=== PATIENT | female | born 1980 | race Caucasian/White ===

== ENCOUNTER 2017-06-02 12:34 | Emergency (ER) | payer OTHER ==
[2017-06-02 15:08] LABS: ADD MAN DIFF? NO
[2017-06-02] MEDS: CEFTRIAXONE 1 GM/50 ML (PMX) 50 ML IVPB (15:09)
[2017-06-02] MEDS: SOD CHLORIDE 0.9% 500 ML IV (15:09)
[2017-06-02] MEDS: METHYLPREDNISOLONE 125 MG INJ IV (15:09)
[2017-06-02 15:12] LABS: BASOPHILS % 0.3 % (0.0-2.0); EOSINOPHILS # 0.1 10^3/ul (0.0-0.5); EOSINOPHILS % 1.3 % (0.0-7.0); HEMATOCRIT 43.8 % (37.0-47.0); HEMOGLOBIN 14.6 g/dl (12.0-16.0); LYMPHOCYTES # 2.6 10^3/ul (0.8-2.9); LYMPHOCYTES % 24.6 % (15.0-51.0); MEAN CORPUSCULAR HEMOGLOBIN 32.2 pg (29.0-33.0); MEAN CORPUSCULAR HGB CONC 33.3 g/dl (32.0-37.0); MEAN CORPUSCULAR VOLUME 96.7 fl (82.0-101.0); MEAN PLATELET VOLUME 9.7 fl (7.4-10.4); MONOCYTE # 0.6 10^3/ul (0.3-0.9); MONOCYTES % 5.4 % (0.0-11.0); NEUTROPHIL # 7.3 10^3/ul (1.6-7.5); NEUTROPHILS % 68.1 % (39.0-77.0); PLATELET COUNT 312 10^3/UL (140-415); RED BLOOD COUNT 4.53 10^6/ul (4.20-5.40); RED CELL DISTRIBUTION WIDTH 14.8 % (11.5-14.5)
[2017-06-02 15:12] LABS: WHITE BLOOD COUNT 10.6 10^3/ul (4.8-10.8)
[2017-06-02 15:32] LABS: ALANINE AMINOTRANSFERASE 99 IU/L (13-69); ALBUMIN 3.3 g/dl (3.3-4.9); ALBUMIN/GLOBULIN RATIO 0.94; ALKALINE PHOSPHATASE 111 IU/L (42-121); ANION GAP 15 (8-16); ASPARTATE AMINO TRANSFERASE 80 IU/L (15-46); BILIRUBIN,INDIRECT 0.6 mg/dl (0-1.1); BILIRUBIN,TOTAL 0.6 mg/dl (0.2-1.3); BLOOD UREA NITROGEN 16 mg/dl (7-20); CALCIUM 8.9 mg/dl (8.4-10.2); CARBON DIOXIDE 25 mmol/L (21-31); CHLORIDE 107 mmol/L (97-110); CREATININE 1.05 mg/dl (0.44-1.00); GLUCOSE 87 mg/dl (70-220); POTASSIUM 4.5 mmol/L (3.5-5.1); SODIUM 142 mmol/L (135-144); TOTAL PROTEIN 6.8 g/dl (6.1-8.1)
[2017-06-02 15:51] LABS: ADD UMIC YES; UR ASCORBIC ACID NEGATIVE (NEGATIVE); UR BILIRUBIN (Dip) NEGATIVE (NEGATIVE); UR BLOOD (Dip) 1+ mg/dL (NEGATIVE); UR CLARITY CLOUDY (CLEAR); UR COLOR YELLOW (YELLOW); UR GLUCOSE (Dip) NEGATIVE (NEGATIVE); UR KETONES (Dip) NEGATIVE (NEGATIVE); UR LEUKOCYTE ESTERASE (Dip) 3+ Leu/ul (NEGATIVE); UR NITRITE (Dip) NEGATIVE (NEGATIVE); UR RBC 14 /HPF (0-5); UR SQUAMOUS EPITHELIAL CELL FEW /HPF (FEW); UR TOTAL PROTEIN (Dip) 2+ mg/dl (NEGATIVE); UR UROBILINOGEN (Dip) NEGATIVE (NEGATIVE); UR WBC 51 /HPF (0-5)
[2017-06-02] MEDS ORDERED: FUROSEMIDE 20 MG INJ IV (16:30)
[2017-06-02] MEDS: FUROSEMIDE 20 MG TAB PO (17:11)
== END 2017-06-02 17:19 | disposition home or self-care (01) ==
LOC: FTE 12:34
DX: L03.311 Cellulitis of abdominal wall (principal); N39.0 Urinary tract infection, site not specified; Z87.891 Personal history of nicotine dependence
CPT/HCPCS: 36415; 80053; 81001; 84703; 85025; 96374; 96375; 99284-25

== ENCOUNTER 2017-06-10 15:13 | Emergency (ER) | payer OTHER ==
[2017-06-10] MEDS: morphine 4 MG/ML VIAL IV (17:53)
[2017-06-10] MEDS: ONDANSETRON 4 MG INJ IV (17:53)
[2017-06-10 18:04] LABS: ADD MAN DIFF? NO
[2017-06-10 18:10] LABS: WHITE BLOOD COUNT 10.6 10^3/ul (4.8-10.8)
[2017-06-10 18:10] LABS: BASOPHILS % 0.4 % (0.0-2.0); EOSINOPHILS # 0.3 10^3/ul (0.0-0.5); EOSINOPHILS % 2.6 % (0.0-7.0); HEMATOCRIT 44.4 % (37.0-47.0); HEMOGLOBIN 14.8 g/dl (12.0-16.0); LYMPHOCYTES # 3.2 10^3/ul (0.8-2.9); LYMPHOCYTES % 30.2 % (15.0-51.0); MEAN CORPUSCULAR HGB CONC 33.3 g/dl (32.0-37.0); MEAN CORPUSCULAR VOLUME 96.1 fl (82.0-101.0); MEAN PLATELET VOLUME 11.1 fl (7.4-10.4); MONOCYTE # 0.7 10^3/ul (0.3-0.9); MONOCYTES % 6.4 % (0.0-11.0); NEUTROPHIL # 6.4 10^3/ul (1.6-7.5); PLATELET COUNT 297 10^3/UL (140-415); RED BLOOD COUNT 4.62 10^6/ul (4.20-5.40)
[2017-06-10 18:31] LABS: ALANINE AMINOTRANSFERASE 117 IU/L (13-69); ALBUMIN 3.4 g/dl (3.3-4.9); ALKALINE PHOSPHATASE 99 IU/L (42-121); ANION GAP 12 (8-16); ASPARTATE AMINO TRANSFERASE 102 IU/L (15-46); BILIRUBIN,INDIRECT 0.9 mg/dl (0-1.1); BILIRUBIN,TOTAL 0.9 mg/dl (0.2-1.3); BLOOD UREA NITROGEN 23 mg/dl (7-20); CARBON DIOXIDE 28 mmol/L (21-31); CHLORIDE 106 mmol/L (97-110); CREATININE 1.25 mg/dl (0.44-1.00); GLUCOSE 77 mg/dl (70-220); LIPASE 270 U/L (23-300); SODIUM 141 mmol/L (135-144); TOTAL PROTEIN 6.8 g/dl (6.1-8.1)
[2017-06-10 19:51] LABS: TROPONIN-I < 0.012 ng/ml (0.00-0.12)
[2017-06-10 20:20] LABS: ADD UMIC YES; UR ASCORBIC ACID NEGATIVE (NEGATIVE); UR BACTERIA FEW /HPF (NONE SEEN); UR BILIRUBIN (Dip) NEGATIVE (NEGATIVE); UR BLOOD (Dip) 2+ mg/dL (NEGATIVE); UR CLARITY CLOUDY (CLEAR); UR COLOR YELLOW (YELLOW); UR GLUCOSE (Dip) NEGATIVE (NEGATIVE); UR KETONES (Dip) NEGATIVE (NEGATIVE); UR LEUKOCYTE ESTERASE (Dip) 3+ Leu/ul (NEGATIVE); UR NITRITE (Dip) NEGATIVE (NEGATIVE); UR RBC 17 /HPF (0-5); UR SPECIFIC GRAVITY (Dip) 1.011 (1.003-1.030); UR SQUAMOUS EPITHELIAL CELL MODERATE /HPF (FEW); UR TOTAL PROTEIN (Dip) NEGATIVE (NEGATIVE); UR UROBILINOGEN (Dip) NEGATIVE (NEGATIVE); UR WBC 45 /HPF (0-5)
== END 2017-06-11 06:53 | disposition home or self-care (01) ==
LOC: FTE 15:13 → E/R 06-11 06:53
DX: I48.92 Unspecified atrial flutter (principal); F17.210 Nicotine dependence, cigarettes, uncomplicated
CPT/HCPCS: 36415; 71045; 74176; 80053; 81001; 81025; 83690; 84484; 85025; 85378; 93005; 93970; 96374; 96375; 99285-25

== ENCOUNTER 2017-06-25 13:33 | Inpatient (IN) | payer OTHER ==
[2017-06-25 16:22] LABS: ADD UMIC YES; UR ASCORBIC ACID NEGATIVE (NEGATIVE); UR BACTERIA FEW /HPF (NONE SEEN); UR BILIRUBIN (Dip) NEGATIVE (NEGATIVE); UR BLOOD (Dip) 3+ mg/dL (NEGATIVE); UR CLARITY SLIGHTLY CLOUDY (CLEAR); UR COLOR YELLOW (YELLOW); UR GLUCOSE (Dip) NEGATIVE (NEGATIVE); UR KETONES (Dip) NEGATIVE (NEGATIVE); UR LEUKOCYTE ESTERASE (Dip) 3+ Leu/ul (NEGATIVE); UR NITRITE (Dip) NEGATIVE (NEGATIVE); UR RBC 7 /HPF (0-5); UR SPECIFIC GRAVITY (Dip) 1.011 (1.003-1.030); UR SQUAMOUS EPITHELIAL CELL FEW /HPF (FEW); UR TOTAL PROTEIN (Dip) 2+ mg/dl (NEGATIVE); UR UROBILINOGEN (Dip) 2+ mg/dL (NEGATIVE); UR WBC 42 /HPF (0-5)
[2017-06-25] MEDS: FUROSEMIDE 20 MG TAB PO (16:22)
[2017-06-25 16:42] LABS: BARBITURATES Negative (NEGATIVE); BENZODIAZEPINES Negative (NEGATIVE)
[2017-06-25 16:58] LABS: CANNABINOIDS Negative (NEGATIVE)
[2017-06-25 16:59] LABS: HAAIG REFLEX REFLEX FILED
[2017-06-25 17:00] LABS: COCAINE Negative (NEGATIVE)
[2017-06-25 17:20] LABS: AMPHETAMINE/METHAMPHETAMINE POSITIVE (NEGATIVE)
[2017-06-25 17:24] LABS: ADD MAN DIFF? NO
[2017-06-25 17:25] LABS: BASOPHILS % 0.5 % (0.0-2.0); EOSINOPHILS # 0.2 10^3/ul (0.0-0.5); EOSINOPHILS % 2.7 % (0.0-7.0); HEMATOCRIT 43.8 % (37.0-47.0); HEMOGLOBIN 14.6 g/dl (12.0-16.0); LYMPHOCYTES # 3.4 10^3/ul (0.8-2.9); LYMPHOCYTES % 41.4 % (15.0-51.0); MEAN CORPUSCULAR HEMOGLOBIN 32.5 pg (29.0-33.0); MEAN CORPUSCULAR HGB CONC 33.3 g/dl (32.0-37.0); MEAN CORPUSCULAR VOLUME 97.6 fl (82.0-101.0); MEAN PLATELET VOLUME 11.2 fl (7.4-10.4); MONOCYTE # 0.5 10^3/ul (0.3-0.9); MONOCYTES % 6.3 % (0.0-11.0); NEUTROPHILS % 48.9 % (39.0-77.0); PLATELET COUNT 295 10^3/UL (140-415); RED BLOOD COUNT 4.49 10^6/ul (4.20-5.40); RED CELL DISTRIBUTION WIDTH 15.5 % (11.5-14.5)
[2017-06-25 17:25] LABS: WHITE BLOOD COUNT 8.3 10^3/ul (4.8-10.8)
[2017-06-25] MEDS ORDERED: ACETAMINOPHEN 325 MG TAB PO ×2 (17:30→18:30)
[2017-06-25] MEDS ORDERED: ONDANSETRON 4 MG INJ IV ×2 (17:30→18:30)
[2017-06-25 17:44] LABS: OPIATES Negative (NEGATIVE)
[2017-06-25 18:15] LABS: HIV 1&2 ANTIBODY NEGATIVE (NEGATIVE)
[2017-06-25 18:19] LABS: ALANINE AMINOTRANSFERASE 67 IU/L (13-69); ANION GAP 9 (8-16); ASPARTATE AMINO TRANSFERASE 59 IU/L (15-46); BLOOD UREA NITROGEN 11 mg/dl (7-20); CALCIUM 8.9 mg/dl (8.4-10.2); CARBON DIOXIDE 30 mmol/L (21-31); CHLORIDE 109 mmol/L (97-110); CREATININE 1.08 mg/dl (0.44-1.00); GLUCOSE 76 mg/dl (70-220); POTASSIUM 4.3 mmol/L (3.5-5.1); SODIUM 144 mmol/L (135-144)
[2017-06-25 18:20] LABS: ALBUMIN 3.1 g/dl (3.3-4.9); ALBUMIN/GLOBULIN RATIO 1.03; ALKALINE PHOSPHATASE 87 IU/L (42-121); BILIRUBIN,INDIRECT 0.4 mg/dl (0-1.1); BILIRUBIN,TOTAL 0.4 mg/dl (0.2-1.3); TOTAL PROTEIN 6.1 g/dl (6.1-8.1)
[2017-06-25 18:25] LABS: TROPONIN-I < 0.012 ng/ml (0.00-0.12)
[2017-06-25 18:29] LABS: B-TYPE NATRIURETIC PEPTIDE 4110 PG/ML (0-125)
[2017-06-25] MEDS ORDERED: NACL 0.9% 3 ML SYG IV (18:30)
[2017-06-25] MEDS ORDERED: BISACODYL (EC) 5 MG TAB PO (18:30)
[2017-06-25] MEDS ORDERED: DOCUSATE SODIUM 100 MG CAP PO (18:30)
[2017-06-25] MEDS ORDERED: MAGNESIUM HYDROXIDE 30ML CUP PO (18:30)
[2017-06-25 18:49] LABS: THYROID STIMULATING HORMONE 0.729 MIU/L (0.465-4.680)
[2017-06-25 18:51] LABS: HEPATITIS B SURFACE ANTIGEN NEGATIVE (NEGATIVE)
[2017-06-25 20:39] LABS: HEPATITIS B CORE ANTIBODY NEGATIVE (NEGATIVE); HEPATITIS C VIRAL ANTIBODY NEGATIVE (NEGATIVE)
[2017-06-25 22:11] LABS: CREATINE KINASE 101 IU/L (23-200)
[2017-06-25 22:24] LABS: CK INDEX 1.8; CK-MB 1.86 ng/ml (0.0-2.4)
[2017-06-25 22:25] LABS: TROPONIN-I < 0.012 ng/ml (0.00-0.12)
[2017-06-25] MEDS: METOPROLOL 25 MG TAB PO (22:39)
[2017-06-25 22:42] LABS: SODIUM,URINE RANDOM 84 mmol/L (30-90)
[2017-06-25 22:42] LABS: POTASSIUM,URINE RANDOM 24.1 mmol/L (25-125)
[2017-06-25 22:45] LABS: CREATININE,URINE RANDOM 94.64 mg/dl (20-320)
[2017-06-26 01:01] LABS: CREATINE KINASE 101 IU/L (23-200)
[2017-06-26 01:10] LABS: CK INDEX 1.7; CK-MB 1.76 ng/ml (0.0-2.4)
[2017-06-26 01:32] LABS: TROPONIN-I < 0.012 ng/ml (0.00-0.12)
[2017-06-26] MEDS: FUROSEMIDE 20 MG INJ IV ×2 (05:11→17:45)
[2017-06-26] MEDS: PANTOPRAZOLE 40 MG INJ IV (05:11)
[2017-06-26 06:07] LABS: ADD MAN DIFF? NO
[2017-06-26 06:18] LABS: BASOPHILS % 0.5 % (0.0-2.0); EOSINOPHILS # 0.2 10^3/ul (0.0-0.5); EOSINOPHILS % 3.1 % (0.0-7.0); HEMATOCRIT 41.9 % (37.0-47.0); HEMOGLOBIN 13.9 g/dl (12.0-16.0); LYMPHOCYTES # 3.4 10^3/ul (0.8-2.9); LYMPHOCYTES % 44.3 % (15.0-51.0); MEAN CORPUSCULAR HEMOGLOBIN 32.3 pg (29.0-33.0); MEAN CORPUSCULAR HGB CONC 33.2 g/dl (32.0-37.0); MEAN CORPUSCULAR VOLUME 97.2 fl (82.0-101.0); MEAN PLATELET VOLUME 10.4 fl (7.4-10.4); MONOCYTE # 0.5 10^3/ul (0.3-0.9); MONOCYTES % 6.6 % (0.0-11.0); NEUTROPHIL # 3.5 10^3/ul (1.6-7.5); NEUTROPHILS % 45.2 % (39.0-77.0); PLATELET COUNT 271 10^3/UL (140-415); RED BLOOD COUNT 4.31 10^6/ul (4.20-5.40); RED CELL DISTRIBUTION WIDTH 14.6 % (11.5-14.5)
[2017-06-26 06:18] LABS: WHITE BLOOD COUNT 7.7 10^3/ul (4.8-10.8)
[2017-06-26 06:35] LABS: ALANINE AMINOTRANSFERASE 64 IU/L (13-69); ALBUMIN 2.6 g/dl (3.3-4.9); ALBUMIN/GLOBULIN RATIO 0.92; ALKALINE PHOSPHATASE 70 IU/L (42-121); ANION GAP 11 (8-16); ASPARTATE AMINO TRANSFERASE 54 IU/L (15-46); BILIRUBIN,INDIRECT 0.3 mg/dl (0-1.1); BILIRUBIN,TOTAL 0.3 mg/dl (0.2-1.3); BLOOD UREA NITROGEN 13 mg/dl (7-20); CALCIUM 8.8 mg/dl (8.4-10.2); CARBON DIOXIDE 24 mmol/L (21-31); CHLORIDE 111 mmol/L (97-110); CREATININE 1.23 mg/dl (0.44-1.00); GLUCOSE 100 mg/dl (70-220); POTASSIUM 3.9 mmol/L (3.5-5.1); SODIUM 142 mmol/L (135-144); TOTAL PROTEIN 5.4 g/dl (6.1-8.1)
[2017-06-26 08:03] LABS: COMPLEMENT C3 102 mg/dl (88-165); COMPLEMENT C4 28 mg/dl (14-44)
[2017-06-26] MEDS: METOPROLOL 25 MG TAB PO (08:38)
[2017-06-26] MEDS: ENOXAPARIN 40 MG/0.4 ML SYG SC (08:39)
[2017-06-26 08:44] LABS: HEPATITIS C VIRAL ANTIBODY NEGATIVE (NEGATIVE)
[2017-06-26 08:45] LABS: HIV 1&2 ANTIBODY NEGATIVE (NEGATIVE)
[2017-06-26] MEDS ORDERED: ENOXAPARIN 40 MG/0.4 ML SYG SC (09:00)
[2017-06-26 09:25] LABS: CHOL/HDL RATIO 3.3 RATIO; HDL CHOLESTEROL 38 mg/dl (34-82); LDL CHOLESTEROL,CALCULATED 67 mg/dl; TRIGLYCERIDES 113 mg/dl (0-149)
[2017-06-26 09:25] LABS: CHOLESTEROL 128 mg/dl (100-200)
[2017-06-26 09:28] LABS: HEMOGLOBIN A1C 5.1 % (0-5.9)
[2017-06-26 09:42] LABS: FREE T4 (FREE THYROXINE) 1.87 ng/dl (0.79-2.35)
[2017-06-26 10:44] LABS: ADD UMIC YES; UR ASCORBIC ACID NEGATIVE (NEGATIVE); UR BILIRUBIN (Dip) NEGATIVE (NEGATIVE); UR BLOOD (Dip) 3+ mg/dL (NEGATIVE); UR CLARITY CLEAR (CLEAR); UR COLOR STRAW (YELLOW); UR GLUCOSE (Dip) NEGATIVE (NEGATIVE); UR KETONES (Dip) NEGATIVE (NEGATIVE); UR LEUKOCYTE ESTERASE (Dip) TRACE Leu/ul (NEGATIVE); UR NITRITE (Dip) NEGATIVE (NEGATIVE); UR RBC 84 /HPF (0-5); UR SPECIFIC GRAVITY (Dip) 1.004 (1.003-1.030); UR SQUAMOUS EPITHELIAL CELL FEW /HPF (FEW); UR TOTAL PROTEIN (Dip) NEGATIVE (NEGATIVE); UR UROBILINOGEN (Dip) NEGATIVE (NEGATIVE); UR WBC 3 /HPF (0-5)
[2017-06-26 11:03] LABS: SODIUM,URINE RANDOM 107 mmol/L (30-90)
[2017-06-26 11:03] LABS: CREATININE,URINE RANDOM 18.46 mg/dl (20-320)
[2017-06-26] MEDS: HEPARIN 5,000 UNIT/0.5 ML VIAL SC ×2 (13:29→21:09)
[2017-06-26] MEDS: HYDROCODONE/APAP (5/325) TAB PO (13:46)
[2017-06-26 21:46] LABS: RAPID PLASMA REAGIN NONREACTIVE (NR)
[2017-06-27 02:37] LABS: COLLECTION PERIOD 24 hrs
[2017-06-27 03:05] LABS: VOLUME 3900 mls
[2017-06-27 05:30] LABS: WHITE BLOOD COUNT 9.5 10^3/ul (4.8-10.8)
[2017-06-27 05:30] LABS: BASOPHILS % 0.4 % (0.0-2.0); EOSINOPHILS # 0.3 10^3/ul (0.0-0.5); EOSINOPHILS % 2.7 % (0.0-7.0); HEMATOCRIT 42.6 % (37.0-47.0); HEMOGLOBIN 14.2 g/dl (12.0-16.0); LYMPHOCYTES # 3.7 10^3/ul (0.8-2.9); LYMPHOCYTES % 38.5 % (15.0-51.0); MEAN CORPUSCULAR HEMOGLOBIN 32.2 pg (29.0-33.0); MEAN CORPUSCULAR HGB CONC 33.3 g/dl (32.0-37.0); MEAN CORPUSCULAR VOLUME 96.6 fl (82.0-101.0); MEAN PLATELET VOLUME 10.3 fl (7.4-10.4); MONOCYTE # 0.8 10^3/ul (0.3-0.9); MONOCYTES % 8.2 % (0.0-11.0); NEUTROPHIL # 4.7 10^3/ul (1.6-7.5); NEUTROPHILS % 49.8 % (39.0-77.0); PLATELET COUNT 277 10^3/UL (140-415); RED BLOOD COUNT 4.41 10^6/ul (4.20-5.40); RED CELL DISTRIBUTION WIDTH 14.5 % (11.5-14.5)
[2017-06-27 05:31] LABS: ADD MAN DIFF? NO
[2017-06-27] MEDS: PANTOPRAZOLE 40 MG INJ IV (05:32)
[2017-06-27] MEDS: FUROSEMIDE 20 MG INJ IV ×2 (05:32→18:49)
[2017-06-27] MEDS: HEPARIN 5,000 UNIT/0.5 ML VIAL SC ×3 (05:34→21:31)
[2017-06-27 05:50] LABS: ALANINE AMINOTRANSFERASE 65 IU/L (13-69); ALBUMIN 2.8 g/dl (3.3-4.9); ALKALINE PHOSPHATASE 86 IU/L (42-121); ANION GAP 13 (8-16); ASPARTATE AMINO TRANSFERASE 69 IU/L (15-46); BILIRUBIN,INDIRECT 0.2 mg/dl (0-1.1); BILIRUBIN,TOTAL 0.2 mg/dl (0.2-1.3); BLOOD UREA NITROGEN 18 mg/dl (7-20); CARBON DIOXIDE 25 mmol/L (21-31); CHLORIDE 105 mmol/L (97-110); CREATININE 1.34 mg/dl (0.44-1.00); GLUCOSE 116 mg/dl (70-220); POTASSIUM 3.9 mmol/L (3.5-5.1); SODIUM 139 mmol/L (135-144); TOTAL PROTEIN 5.9 g/dl (6.1-8.1)
[2017-06-27 05:52] LABS: MAGNESIUM 1.4 mg/dl (1.7-2.5)
[2017-06-27 05:52] LABS: PHOSPHORUS 5.5 mg/dl (2.5-4.9)
[2017-06-27 06:31] LABS: PROTEIN, TOTAL 5.5 g/dL (6.1-8.1)
[2017-06-27] MEDS: MAGNESIUM SULFATE 4 GM/100 ML 100 ML IVPB (11:16)
[2017-06-28] MEDS: PANTOPRAZOLE 40 MG INJ IV (06:03)
[2017-06-28] MEDS: FUROSEMIDE 20 MG INJ IV ×2 (06:03→17:18)
[2017-06-28] MEDS: HEPARIN 5,000 UNIT/0.5 ML VIAL SC ×3 (06:14→21:52)
[2017-06-28 09:24] LABS: ALANINE AMINOTRANSFERASE 104 IU/L (13-69); ALBUMIN 2.9 g/dl (3.3-4.9); ALBUMIN/GLOBULIN RATIO 0.96; ALKALINE PHOSPHATASE 85 IU/L (42-121); ANION GAP 11 (8-16); ASPARTATE AMINO TRANSFERASE 122 IU/L (15-46); BILIRUBIN,INDIRECT 0.4 mg/dl (0-1.1); BILIRUBIN,TOTAL 0.4 mg/dl (0.2-1.3); BLOOD UREA NITROGEN 21 mg/dl (7-20); CALCIUM 9.3 mg/dl (8.4-10.2); CARBON DIOXIDE 34 mmol/L (21-31); CHLORIDE 101 mmol/L (97-110); CREATININE 1.07 mg/dl (0.44-1.00); GLUCOSE 91 mg/dl (70-220); MAGNESIUM 1.5 mg/dl (1.7-2.5); POTASSIUM 3.6 mmol/L (3.5-5.1); SODIUM 142 mmol/L (135-144); TOTAL PROTEIN 5.9 g/dl (6.1-8.1)
[2017-06-28] MEDS: MAGNESIUM SULFATE 4 GM/100 ML 100 ML IVPB (13:30)
[2017-06-28 14:48] LABS: CREATININE, RANDOM URINE 21 mg/dL (20-320); MICROALBUMIN 1.4 mg/dL; MICROALBUMIN/CREATININE RATIO 67 (<30)
[2017-06-28 19:16] LABS: ANA SCREEN NEGATIVE (NEGATIVE)
[2017-06-29] MEDS: PANTOPRAZOLE 40 MG INJ IV (05:58)
[2017-06-29] MEDS: FUROSEMIDE 20 MG INJ IV (05:58)
[2017-06-29] MEDS: HEPARIN 5,000 UNIT/0.5 ML VIAL SC ×3 (06:03→22:23)
[2017-06-29] MEDS: LISINOPRIL 5 MG TAB PO (11:55)
[2017-06-29] MEDS: MAGNESIUM SULFATE 4 GM/100 ML 100 ML IVPB (13:37)
[2017-06-29 14:32] LABS: CREATININE, RANDOM URINE 107 mg/dL (20-320); PROTEIN/CREATININE RATIO 1411 mg/g creat (21-161)
[2017-06-29 16:01] LABS: ALBUMIN 2.7 g/dL (3.8-4.8); ALPHA-1-GLOBULINS 0.4 g/dL (0.2-0.3); ALPHA-2-GLOBULINS 0.6 g/dL (0.5-0.9); BETA 2 GLOBULINS 0.3 g/dL (0.2-0.5); BETA GLOBULINS 0.5 g/dL (0.4-0.6)
[2017-06-30] MEDS: PANTOPRAZOLE 40 MG INJ IV (05:35)
[2017-06-30] MEDS: HEPARIN 5,000 UNIT/0.5 ML VIAL SC ×2 (05:41→13:07)
[2017-06-30] MEDS: LISINOPRIL 5 MG TAB PO (08:23)
[2017-06-30] MEDS: BUMETANIDE 1 MG TAB PO (08:23)
[2017-06-30 09:46] LABS: PHOSPHORUS 4.1 mg/dl (2.5-4.9)
[2017-06-30 09:46] LABS: MAGNESIUM 1.7 mg/dl (1.7-2.5)
[2017-06-30 09:47] LABS: ANION GAP 10 (8-16); BLOOD UREA NITROGEN 12 mg/dl (7-20); CALCIUM 8.8 mg/dl (8.4-10.2); CARBON DIOXIDE 32 mmol/L (21-31); CHLORIDE 104 mmol/L (97-110); CREATININE 1.04 mg/dl (0.44-1.00); GLUCOSE 122 mg/dl (70-220); POTASSIUM 3.9 mmol/L (3.5-5.1); SODIUM 142 mmol/L (135-144)
== END 2017-06-30 14:40 | disposition home or self-care (01) | DRG 291 ==
LOC: MS3 17:23 → FTE 13:33 → MS4 06-27 06:31
PROVIDERS: Internal Medicine Nephrology
DX: I13.0 Hypertensive heart and chronic kidney disease with heart failure and stage 1 through stage 4 chronic kidney disease, or unspecified chronic kidney disease (principal); I50.43 Acute on chronic combined systolic (congestive) and diastolic (congestive) heart failure; N17.9 Acute kidney failure, unspecified; I27.29 Other secondary pulmonary hypertension; I07.1 Rheumatic tricuspid insufficiency; E83.42 Hypomagnesemia; F15.10 Other stimulant abuse, uncomplicated; N18.9 Chronic kidney disease, unspecified; I50.810 Right heart failure, unspecified; F17.210 Nicotine dependence, cigarettes, uncomplicated
CPT/HCPCS: 71046; 76775; 80048; 80053; 80061; 80307; 81001; 81003; 81025; 82043; 82436; 82550; 82553; 82570; 83036; 83735; 83880; 84100; 84133; 84155; 84156; 84165; 84166; 84300; 84439; 84443; 84484; 85025; 86038; 86160; 86592; 86703; 86704; 86709; 86803; 87086; 87340; 93005; 93306; 99217; 99285-25

== ENCOUNTER 2018-04-30 18:10 | Inpatient (IN) | payer OTHER ==
[2018-04-30] MEDS ORDERED: ACETAMINOPHEN 325 MG TAB PO (21:30)
[2018-04-30] MEDS ORDERED: ZOLPIDEM 5 MG TAB PO (21:30)
[2018-05-01 03:09] LABS: TROPONIN-I < 0.012 ng/ml (0.000-0.120)
[2018-05-01] MEDS: BUMETANIDE 1 MG INJ IV ×2 (05:51→18:11)
[2018-05-01 06:54] LABS: ADD MAN DIFF? NO
[2018-05-01 06:58] LABS: WHITE BLOOD COUNT 6.3 10^3/ul (4.8-10.8)
[2018-05-01 06:58] LABS: BASOPHILS % 0.3 % (0.0-2.0); EOSINOPHILS # 0.1 10^3/ul (0.0-0.5); EOSINOPHILS % 2.2 % (0.0-7.0); HEMOGLOBIN 11.6 g/dl (12.0-16.0); LYMPHOCYTES # 2.2 10^3/ul (0.8-2.9); MEAN CORPUSCULAR HGB CONC 33.1 g/dl (32.0-37.0); MEAN CORPUSCULAR VOLUME 99.4 fl (82.0-101.0); MEAN PLATELET VOLUME 10.5 fl (7.4-10.4); MONOCYTE # 0.7 10^3/ul (0.3-0.9); MONOCYTES % 10.9 % (0.0-11.0); NEUTROPHIL # 3.3 10^3/ul (1.6-7.5); NEUTROPHILS % 52.3 % (39.0-77.0); PLATELET COUNT 221 10^3/UL (140-415); RED BLOOD COUNT 3.52 10^6/ul (4.20-5.40); RED CELL DISTRIBUTION WIDTH 15.3 % (11.5-14.5)
[2018-05-01 07:32] LABS: ANION GAP 11 (5-13); BLOOD UREA NITROGEN 22 mg/dl (7-20); CALCIUM 9.5 mg/dl (8.4-10.2); CARBON DIOXIDE 29 mmol/L (21-31); CHLORIDE 101 mmol/L (97-110); CHOL/HDL RATIO 3.3 RATIO; CHOLESTEROL 98 mg/dl (100-200); CREATININE 0.99 mg/dl (0.44-1.00); Estimated GFR > 60 mL/min (>60); GLUCOSE 122 mg/dl (70-220); HDL CHOLESTEROL 29 mg/dl (34-82); LDL CHOLESTEROL,CALCULATED 50 mg/dl; POTASSIUM 3.8 mmol/L (3.5-5.1); SODIUM 141 mmol/L (135-144); TRIGLYCERIDES 93 mg/dl (0-149)
[2018-05-01 07:42] LABS: TROPONIN-I 0.014 ng/ml (0.000-0.120)
[2018-05-01] MEDS: ASPIRIN 81 MG TAB PO (08:52)
[2018-05-01] MEDS: LISINOPRIL 5 MG TAB PO (08:53)
[2018-05-01] MEDS: ENOXAPARIN 40 MG/0.4 ML SYG SC (08:58)
[2018-05-01 12:57] LABS: TROPONIN-I < 0.012 ng/ml (0.000-0.120)
[2018-05-01] MEDS ORDERED: NITROGLYCERIN (SL) 0.4 MG TAB SL (17:30)
[2018-05-01] MEDS: traMADol 50 MG TAB PO (21:14)
[2018-05-02] MEDS: BUMETANIDE 1 MG INJ IV ×2 (05:39→17:58)
[2018-05-02 07:49] LABS: ANION GAP 10 (5-13); BLOOD UREA NITROGEN 26 mg/dl (7-20); CALCIUM 9.6 mg/dl (8.4-10.2); CARBON DIOXIDE 30 mmol/L (21-31); CHLORIDE 99 mmol/L (97-110); CREATININE 0.94 mg/dl (0.44-1.00); Estimated GFR > 60 mL/min (>60); GLUCOSE 81 mg/dl (70-220); POTASSIUM 3.8 mmol/L (3.5-5.1); SODIUM 139 mmol/L (135-144)
[2018-05-02 08:00] LABS: CHOLESTEROL 99 mg/dl (100-200)
[2018-05-02 08:00] LABS: CHOL/HDL RATIO 3.1 RATIO; HDL CHOLESTEROL 31 mg/dl (34-82); LDL CHOLESTEROL,CALCULATED 58 mg/dl; TRIGLYCERIDES 52 mg/dl (0-149)
[2018-05-02] MEDS: ASPIRIN 81 MG TAB PO (09:33)
[2018-05-02] MEDS: LISINOPRIL 5 MG TAB PO (09:33)
[2018-05-02] MEDS: ENOXAPARIN 40 MG/0.4 ML SYG SC (09:37)
[2018-05-03] MEDS: BUMETANIDE 1 MG INJ IV ×2 (06:15→18:25)
[2018-05-03 07:14] LABS: ANION GAP 9 (5-13); BLOOD UREA NITROGEN 27 mg/dl (7-20); CALCIUM 9.3 mg/dl (8.4-10.2); CARBON DIOXIDE 30 mmol/L (21-31); CHLORIDE 100 mmol/L (97-110); CREATININE 0.91 mg/dl (0.44-1.00); Estimated GFR > 60 mL/min (>60); GLUCOSE 89 mg/dl (70-220); POTASSIUM 3.9 mmol/L (3.5-5.1); SODIUM 139 mmol/L (135-144)
[2018-05-03] MEDS: ENOXAPARIN 40 MG/0.4 ML SYG SC ×2 (09:00→10:13)
[2018-05-03] MEDS: ASPIRIN 81 MG TAB PO (09:39)
[2018-05-03] MEDS: LISINOPRIL 5 MG TAB PO (09:40)
[2018-05-03 15:03] LABS: PLATELET COUNT 223 10^3/UL (140-415)
[2018-05-03 15:19] LABS: INR 1.04; INR 1.09; PROTIME 13.7 Sec (11.9-14.9); PROTIME 14.2 Sec (11.9-14.9); PT RATIO 1.1
[2018-05-03 15:20] LABS: THROMBIN TIME 15.6 SEC (13.8-19.1)
[2018-05-03] MEDS: LIDOCAINE 1% (MPF) 5 ML VIAL (18:16)
== END 2018-05-03 19:43 | disposition home or self-care (01) | DRG 293 ==
LOC: TEL 18:10
PROVIDERS: Internal Medicine Nephrology
PROC: 0W9G3ZZ Drainage of Peritoneal Cavity, Percutaneous Approach (ICD-10-PCS; principal; 2018-05-03)
DX: I11.0 Hypertensive heart disease with heart failure (principal); I50.23 Acute on chronic systolic (congestive) heart failure; F17.210 Nicotine dependence, cigarettes, uncomplicated; I42.9 Cardiomyopathy, unspecified; E78.5 Hyperlipidemia, unspecified; I27.20 Pulmonary hypertension, unspecified; D64.9 Anemia, unspecified; F15.10 Other stimulant abuse, uncomplicated; F12.10 Cannabis abuse, uncomplicated; E66.9 Obesity, unspecified; Z68.34 Body mass index [BMI] 34.0-34.9, adult; Z79.82 Long term (current) use of aspirin; Z91.19 Patient's noncompliance with other medical treatment and regimen
CPT/HCPCS: 71045; 76705; 80048; 80061; 84484; 85025; 85049; 85610; 85670; 85730; 93306; 99217; G0378

== ENCOUNTER 2018-06-02 15:58 | Emergency (ER) | payer OTHER ==
[2018-06-02 16:38] LABS: ADD MAN DIFF? NO
[2018-06-02] MEDS: ONDANSETRON 4 MG INJ IV (16:38)
[2018-06-02 16:39] LABS: BASOPHIL # 0.1 10^3/ul (0.0-0.1); BASOPHILS % 0.3 % (0.0-2.0); EOSINOPHILS % 0.1 % (0.0-7.0); HEMATOCRIT 39.9 % (37.0-47.0); HEMOGLOBIN 13.3 g/dl (12.0-16.0); LYMPHOCYTES # 0.7 10^3/ul (0.8-2.9); LYMPHOCYTES % 4.8 % (15.0-51.0); MEAN CORPUSCULAR HEMOGLOBIN 32.8 pg (29.0-33.0); MEAN CORPUSCULAR HGB CONC 33.3 g/dl (32.0-37.0); MEAN CORPUSCULAR VOLUME 98.3 fl (82.0-101.0); MEAN PLATELET VOLUME 10.4 fl (7.4-10.4); MONOCYTE # 0.8 10^3/ul (0.3-0.9); NEUTROPHIL # 13.5 10^3/ul (1.6-7.5); NEUTROPHILS % 89.1 % (39.0-77.0); PLATELET COUNT 242 10^3/UL (140-415); RED BLOOD COUNT 4.06 10^6/ul (4.20-5.40); RED CELL DISTRIBUTION WIDTH 15.2 % (11.5-14.5)
[2018-06-02 16:39] LABS: WHITE BLOOD COUNT 15.1 10^3/ul (4.8-10.8)
[2018-06-02] MEDS: DICYCLOMINE 20 MG INJ IM (16:54)
[2018-06-02 16:58] LABS: ANION GAP 12 (5-13); BLOOD UREA NITROGEN 18 mg/dl (7-20); CALCIUM 9.9 mg/dl (8.4-10.2); CARBON DIOXIDE 28 mmol/L (21-31); CHLORIDE 101 mmol/L (97-110); CREATININE 0.97 mg/dl (0.44-1.00); Estimated GFR > 60 mL/min (>60); GLUCOSE 110 mg/dl (70-220); POTASSIUM 4.9 mmol/L (3.5-5.1); SODIUM 141 mmol/L (135-144)
[2018-06-02 17:10] LABS: B-TYPE NATRIURETIC PEPTIDE 4240 PG/ML (0-125); TROPONIN-I < 0.012 ng/ml (0.000-0.120)
[2018-06-02] MEDS: FUROSEMIDE 20 MG TAB PO (18:28)
== END 2018-06-02 18:36 | disposition home or self-care (01) ==
LOC: E/R 15:58
DX: I50.9 Heart failure, unspecified (principal); F17.210 Nicotine dependence, cigarettes, uncomplicated; R19.7 Diarrhea, unspecified; R07.9 Chest pain, unspecified
CPT/HCPCS: 36415; 71045; 80048; 81025; 83880; 84484; 85025; 93005; 96372; 96374; 99285-25

== ENCOUNTER 2018-07-04 20:53 | Inpatient (IN) | payer OTHER ==
[2018-07-04] MEDS ORDERED: BISACODYL (EC) 5 MG TAB PO ×2 (23:00→23:30)
[2018-07-04] MEDS ORDERED: GLUCAGON 1 MG INJ IM (23:45)
[2018-07-04] MEDS ORDERED: GLUCOSE GEL 15 GRAM TUBE PO ×2 (23:45)
[2018-07-04] MEDS ORDERED: GLUCOSE GEL 15 GRAM TUBE BUCCAL (23:45)
[2018-07-04] MEDS ORDERED: DEXTROSE 50% 50 ML SYRINGE IV ×2 (23:45)
[2018-07-05] MEDS: ACCU-CHEK XX (02:00)
[2018-07-05] MEDS: GUAIFENESIN/DM 5ML CUP PO ×4 (02:18→15:22)
[2018-07-05] MEDS: ACETAMINOPHEN 325 MG TAB PO ×4 (02:19→20:46)
[2018-07-05] MEDS: ALBUTEROL/IPRATROPIUM (NEB) 3 ML AMP HHN ×4 (02:51→21:21)
[2018-07-05] MEDS: PANTOPRAZOLE (EC) 40 MG TAB PO (05:51)
[2018-07-05 05:54] LABS: WHITE BLOOD COUNT 9.7 10^3/ul (4.8-10.8)
[2018-07-05 05:54] LABS: ADD MAN DIFF? NO; BASOPHILS % 0.4 % (0.0-2.0); EOSINOPHILS # 0.1 10^3/ul (0.0-0.5); EOSINOPHILS % 1.3 % (0.0-7.0); HEMATOCRIT 37.2 % (37.0-47.0); HEMOGLOBIN 12.5 g/dl (12.0-16.0); LYMPHOCYTES # 2.3 10^3/ul (0.8-2.9); LYMPHOCYTES % 23.8 % (15.0-51.0); MEAN CORPUSCULAR HEMOGLOBIN 32.5 pg (29.0-33.0); MEAN CORPUSCULAR HGB CONC 33.6 g/dl (32.0-37.0); MEAN CORPUSCULAR VOLUME 96.6 fl (82.0-101.0); MEAN PLATELET VOLUME 11.3 fl (7.4-10.4); MONOCYTE # 0.9 10^3/ul (0.3-0.9); NEUTROPHIL # 6.3 10^3/ul (1.6-7.5); NEUTROPHILS % 65.1 % (39.0-77.0); PLATELET COUNT 231 10^3/UL (140-415); RED BLOOD COUNT 3.85 10^6/ul (4.20-5.40)
[2018-07-05 06:09] LABS: ANION GAP 14 (5-13); BLOOD UREA NITROGEN 34 mg/dl (7-20); CALCIUM 9.2 mg/dl (8.4-10.2); CARBON DIOXIDE 27 mmol/L (21-31); CHLORIDE 97 mmol/L (97-110); CREATININE 0.89 mg/dl (0.44-1.00); Estimated GFR > 60 mL/min (>60); GLUCOSE 107 mg/dl (70-220); POTASSIUM 3.8 mmol/L (3.5-5.1); SODIUM 138 mmol/L (135-144)
[2018-07-05 07:10] LABS: HEMOGLOBIN A1C 6.3 % (0-5.9)
[2018-07-05] MEDS: INSULIN ASPART [NOVOLOG] 3 ML PEN SC ×7 (08:00→20:56)
[2018-07-05] MEDS: MUPIROCIN 2% 22 GM OINT TOP ×2 (09:40→20:48)
[2018-07-05] MEDS: ASPIRIN 81 MG TAB PO (09:40)
[2018-07-05] MEDS: FUROSEMIDE 40 MG INJ IV ×2 (09:41→20:48)
[2018-07-05] MEDS: ENOXAPARIN 40 MG/0.4 ML SYG SC (09:50)
[2018-07-05 18:32] LABS: B-TYPE NATRIURETIC PEPTIDE 2440 PG/ML (0-125)
[2018-07-05 18:36] LABS: TROPONIN-I < 0.012 ng/ml (0.000-0.120)
[2018-07-05] MEDS: ZOLPIDEM 5 MG TAB PO (20:46)
[2018-07-05] MEDS: GUAIFENESIN LA 600 MG TABSR PO (20:46)
[2018-07-06 01:54] LABS: TROPONIN-I < 0.012 ng/ml (0.000-0.120)
[2018-07-06] MEDS: ACCU-CHEK XX (02:00)
[2018-07-06] MEDS: GUAIFENESIN/DM 5ML CUP PO ×2 (05:40→17:53)
[2018-07-06] MEDS: PANTOPRAZOLE (EC) 40 MG TAB PO (05:40)
[2018-07-06] MEDS: ACETAMINOPHEN 325 MG TAB PO ×3 (05:41→17:53)
[2018-07-06] MEDS: ALBUTEROL/IPRATROPIUM (NEB) 3 ML AMP HHN ×3 (05:46→23:04)
[2018-07-06 06:05] LABS: ADD MAN DIFF? NO
[2018-07-06 06:16] LABS: BASOPHILS % 0.4 % (0.0-2.0); EOSINOPHILS # 0.2 10^3/ul (0.0-0.5); EOSINOPHILS % 2.1 % (0.0-7.0); HEMATOCRIT 37.1 % (37.0-47.0); HEMOGLOBIN 12.1 g/dl (12.0-16.0); LYMPHOCYTES # 1.9 10^3/ul (0.8-2.9); LYMPHOCYTES % 24.1 % (15.0-51.0); MEAN CORPUSCULAR HEMOGLOBIN 32.4 pg (29.0-33.0); MEAN CORPUSCULAR HGB CONC 32.6 g/dl (32.0-37.0); MEAN CORPUSCULAR VOLUME 99.2 fl (82.0-101.0); MEAN PLATELET VOLUME 10.7 fl (7.4-10.4); MONOCYTE # 0.9 10^3/ul (0.3-0.9); MONOCYTES % 11.2 % (0.0-11.0); NEUTROPHIL # 4.9 10^3/ul (1.6-7.5); NEUTROPHILS % 61.9 % (39.0-77.0); PLATELET COUNT 217 10^3/UL (140-415); RED BLOOD COUNT 3.74 10^6/ul (4.20-5.40); RED CELL DISTRIBUTION WIDTH 15.9 % (11.5-14.5)
[2018-07-06 06:16] LABS: WHITE BLOOD COUNT 7.9 10^3/ul (4.8-10.8)
[2018-07-06 06:35] LABS: ALBUMIN 3.7 g/dl (3.3-4.9); ANION GAP 12 (5-13); BLOOD UREA NITROGEN 36 mg/dl (7-20); CALCIUM 9.3 mg/dl (8.4-10.2); CARBON DIOXIDE 30 mmol/L (21-31); CHLORIDE 97 mmol/L (97-110); CREATININE 0.94 mg/dl (0.44-1.00); GLUCOSE 107 mg/dl (70-220); MAGNESIUM 2.2 mg/dl (1.7-2.5); PHOSPHORUS 4.9 mg/dl (2.5-4.9); POTASSIUM 4.1 mmol/L (3.5-5.1); SODIUM 139 mmol/L (135-144)
[2018-07-06 06:50] LABS: TROPONIN-I < 0.012 ng/ml (0.000-0.120)
[2018-07-06 07:13] LABS: CHOLESTEROL 111 mg/dl (100-200)
[2018-07-06 07:13] LABS: HDL CHOLESTEROL 22 mg/dl (34-82); LDL CHOLESTEROL,CALCULATED 63 mg/dl; TRIGLYCERIDES 132 mg/dl (0-149)
[2018-07-06] MEDS: INSULIN ASPART [NOVOLOG] 3 ML PEN SC ×7 (08:00→20:11)
[2018-07-06] MEDS: FUROSEMIDE 40 MG INJ IV ×2 (08:30→20:10)
[2018-07-06] MEDS: ASPIRIN 81 MG TAB PO (08:31)
[2018-07-06] MEDS: GUAIFENESIN LA 600 MG TABSR PO ×2 (08:31→20:10)
[2018-07-06] MEDS: LISINOPRIL 5 MG TAB PO (08:31)
[2018-07-06] MEDS: ENOXAPARIN 40 MG/0.4 ML SYG SC (09:15)
[2018-07-06] MEDS: MUPIROCIN 2% 22 GM OINT TOP ×2 (09:45→20:11)
[2018-07-06 12:41] LABS: INR 1.12; PROTIME 14.5 Sec (11.9-14.9); PT RATIO 1.1
[2018-07-06 12:42] LABS: PARTIAL THROMBOPLASTIN TIME 36.8 Sec (23.0-35.0)
[2018-07-06] MEDS: ONDANSETRON 4 MG INJ IV (13:17)
[2018-07-06] MEDS: LIDOCAINE 1% (MPF) 5 ML VIAL (17:11)
[2018-07-06] MEDS: BENZONATATE 100 MG CAP PO (17:53)
[2018-07-06 18:29] LABS: FLD PMN% 6.1 %; FLD RBC 51000 /uL; FLD WBC 964 /cmm
[2018-07-06 18:38] LABS: FLUID LD 563 U/L
[2018-07-06 18:40] LABS: FLUID GLUCOSE 92 mg/dl; FLUID TYPE PLEURAL FLUID
[2018-07-06 19:37] LABS: FLD CLARITY SLIGHTLY CLOUDY; FLD COLOR ORANGE
[2018-07-06 19:37] LABS: FLD TYPE PLEURAL
[2018-07-06 19:38] LABS: FLD MN% 93.9 %
[2018-07-06 19:39] LABS: PATH REVIEW? YES
[2018-07-06] MEDS: ZOLPIDEM 5 MG TAB PO (22:25)
[2018-07-07] MEDS: ACETAMINOPHEN 325 MG TAB PO (00:21)
[2018-07-07] MEDS: ZOLPIDEM 5 MG TAB PO (00:21)
[2018-07-07] MEDS: ACCU-CHEK XX (02:00)
[2018-07-07] MEDS: PANTOPRAZOLE (EC) 40 MG TAB PO (05:43)
[2018-07-07 06:15] LABS: ADD MAN DIFF? NO
[2018-07-07 06:27] LABS: BASOPHILS % 0.3 % (0.0-2.0); EOSINOPHILS # 0.3 10^3/ul (0.0-0.5); HEMATOCRIT 37.8 % (37.0-47.0); HEMOGLOBIN 12.4 g/dl (12.0-16.0); LYMPHOCYTES % 21.7 % (15.0-51.0); MEAN CORPUSCULAR HGB CONC 32.8 g/dl (32.0-37.0); MEAN CORPUSCULAR VOLUME 97.7 fl (82.0-101.0); MEAN PLATELET VOLUME 10.9 fl (7.4-10.4); MONOCYTE # 0.8 10^3/ul (0.3-0.9); MONOCYTES % 8.6 % (0.0-11.0); NEUTROPHILS % 66.1 % (39.0-77.0); PLATELET COUNT 213 10^3/UL (140-415); RED BLOOD COUNT 3.87 10^6/ul (4.20-5.40); RED CELL DISTRIBUTION WIDTH 15.9 % (11.5-14.5)
[2018-07-07 06:42] LABS: ALBUMIN 3.7 g/dl (3.3-4.9); ANION GAP 11 (5-13); BLOOD UREA NITROGEN 48 mg/dl (7-20); CARBON DIOXIDE 31 mmol/L (21-31); CHLORIDE 96 mmol/L (97-110); CREATININE 1.02 mg/dl (0.44-1.00); GLUCOSE 93 mg/dl (70-220); MAGNESIUM 2.2 mg/dl (1.7-2.5); PHOSPHORUS 4.4 mg/dl (2.5-4.9); POTASSIUM 3.9 mmol/L (3.5-5.1); SODIUM 138 mmol/L (135-144)
[2018-07-07] MEDS: INSULIN ASPART [NOVOLOG] 3 ML PEN SC ×4 (09:13→11:56)
[2018-07-07] MEDS: ASPIRIN 81 MG TAB PO (10:01)
[2018-07-07] MEDS: FUROSEMIDE 40 MG INJ IV (10:01)
[2018-07-07] MEDS: GUAIFENESIN LA 600 MG TABSR PO (10:02)
[2018-07-07] MEDS: LISINOPRIL 5 MG TAB PO (10:02)
[2018-07-07] MEDS: ENOXAPARIN 40 MG/0.4 ML SYG SC (10:04)
[2018-07-07] MEDS: MUPIROCIN 2% 22 GM OINT TOP (10:05)
[2018-07-07] MEDS: ALBUTEROL/IPRATROPIUM (NEB) 3 ML AMP HHN (13:11)
== END 2018-07-07 15:33 | disposition home or self-care (01) | DRG 281 ==
LOC: 6WM 20:53
PROC: 0W993ZZ Drainage of Right Pleural Cavity, Percutaneous Approach (ICD-10-PCS; principal; 2018-07-06)
DX: I11.0 Hypertensive heart disease with heart failure (principal); I21.A1 Myocardial infarction type 2; J90 Pleural effusion, not elsewhere classified; E87.1 Hypo-osmolality and hyponatremia; I50.33 Acute on chronic diastolic (congestive) heart failure; I27.20 Pulmonary hypertension, unspecified; F15.10 Other stimulant abuse, uncomplicated; I48.91 Unspecified atrial fibrillation; J44.9 Chronic obstructive pulmonary disease, unspecified; Z72.0 Tobacco use
CPT/HCPCS: 71045; 71046; 76942; 80048; 80061; 80069; 82945; 82962; 83036; 83615; 83735; 83880; 84157; 84484; 85025; 85610; 85730; 87070; 87102; 87116; 88104; 88305; 89051; 93005; 93306; 94640; 94664; 99217; G0378

== ENCOUNTER 2018-08-22 18:00 | Inpatient (IN) | payer OTHER ==
[2018-08-22 18:40] LABS: ADD MAN DIFF? NO
[2018-08-22 18:44] LABS: BASOPHILS % 0.3 % (0.0-2.0); EOSINOPHILS # 0.1 10^3/ul (0.0-0.5); EOSINOPHILS % 1.8 % (0.0-7.0); HEMATOCRIT 42.4 % (37.0-47.0); HEMOGLOBIN 14.4 g/dl (12.0-16.0); LYMPHOCYTES # 2.8 10^3/ul (0.8-2.9); LYMPHOCYTES % 38.8 % (15.0-51.0); MEAN CORPUSCULAR HEMOGLOBIN 32.6 pg (29.0-33.0); MEAN CORPUSCULAR VOLUME 95.9 fl (82.0-101.0); MEAN PLATELET VOLUME 10.4 fl (7.4-10.4); MONOCYTE # 0.6 10^3/ul (0.3-0.9); MONOCYTES % 7.8 % (0.0-11.0); NEUTROPHIL # 3.7 10^3/ul (1.6-7.5); PLATELET COUNT 245 10^3/UL (140-415); RED BLOOD COUNT 4.42 10^6/ul (4.20-5.40); RED CELL DISTRIBUTION WIDTH 14.7 % (11.5-14.5)
[2018-08-22 18:44] LABS: WHITE BLOOD COUNT 7.2 10^3/ul (4.8-10.8)
[2018-08-22 19:04] LABS: INR 1.12; PROTIME 14.5 Sec (11.9-14.9); PT RATIO 1.1
[2018-08-22 19:05] LABS: PARTIAL THROMBOPLASTIN TIME 29.2 Sec (23.0-35.0)
[2018-08-22 19:06] LABS: ANION GAP 11 (5-13); BLOOD UREA NITROGEN 14 mg/dl (7-20); CALCIUM 9.2 mg/dl (8.4-10.2); CARBON DIOXIDE 27 mmol/L (21-31); CHLORIDE 103 mmol/L (97-110); CREATININE 0.77 mg/dl (0.44-1.00); Estimated GFR > 60 mL/min (>60); GLUCOSE 114 mg/dl (70-220); MAGNESIUM 1.6 mg/dl (1.7-2.5); POTASSIUM 3.4 mmol/L (3.5-5.1); SODIUM 141 mmol/L (135-144)
[2018-08-22 19:11] LABS: BARBITURATES Negative (NEGATIVE); BENZODIAZEPINES Negative (NEGATIVE); CANNABINOIDS Negative (NEGATIVE); COCAINE Negative (NEGATIVE); OPIATES Negative (NEGATIVE)
[2018-08-22 19:16] LABS: AMPHETAMINE/METHAMPHETAMINE Positive (NEGATIVE)
[2018-08-22 19:17] LABS: B-TYPE NATRIURETIC PEPTIDE 2470 PG/ML (0-125); TROPONIN-I < 0.012 ng/ml (0.000-0.120)
[2018-08-22 19:22] LABS: ETHANOL < 10.0 mg/dl (0-0)
[2018-08-22] MEDS: POTASSIUM CHLORIDE (SR) 20 MEQ TAB PO (19:48)
[2018-08-22] MEDS: MAGNESIUM OXIDE 400 MG TAB PO (19:48)
[2018-08-22] MEDS: FUROSEMIDE 20 MG INJ IV (19:49)
[2018-08-23] MEDS: HYDROCODONE/APAP (5/325) TAB PO ×3 (00:56→19:47)
[2018-08-23] MEDS ORDERED: ACETAMINOPHEN 325 MG TAB PO (01:00)
[2018-08-23] MEDS ORDERED: NITROGLYCERIN (SL) 0.4 MG TAB SL (01:00)
[2018-08-23] MEDS ORDERED: NACL 0.9% 3 ML SYG IV (01:00)
[2018-08-23] MEDS ORDERED: ONDANSETRON 4 MG INJ IV (01:00)
[2018-08-23 05:39] LABS: ADD MAN DIFF? NO
[2018-08-23 05:41] LABS: WHITE BLOOD COUNT 7.8 10^3/ul (4.8-10.8)
[2018-08-23 05:41] LABS: BASOPHILS % 0.4 % (0.0-2.0); EOSINOPHILS # 0.2 10^3/ul (0.0-0.5); HEMATOCRIT 42.8 % (37.0-47.0); HEMOGLOBIN 14.1 g/dl (12.0-16.0); MEAN CORPUSCULAR HEMOGLOBIN 31.8 pg (29.0-33.0); MEAN CORPUSCULAR HGB CONC 32.9 g/dl (32.0-37.0); MEAN CORPUSCULAR VOLUME 96.6 fl (82.0-101.0); MEAN PLATELET VOLUME 10.1 fl (7.4-10.4); MONOCYTE # 0.7 10^3/ul (0.3-0.9); MONOCYTES % 8.4 % (0.0-11.0); NEUTROPHILS % 50.9 % (39.0-77.0); PLATELET COUNT 237 10^3/UL (140-415); RED BLOOD COUNT 4.43 10^6/ul (4.20-5.40); RED CELL DISTRIBUTION WIDTH 14.8 % (11.5-14.5)
[2018-08-23 06:24] LABS: ALANINE AMINOTRANSFERASE 31 IU/L (13-69); ALBUMIN 3.7 g/dl (3.3-4.9); ALBUMIN/GLOBULIN RATIO 1.05; ALKALINE PHOSPHATASE 139 IU/L (42-121); ANION GAP 12 (5-13); ASPARTATE AMINO TRANSFERASE 57 IU/L (15-46); BILIRUBIN,INDIRECT 0.8 mg/dl (0-1.1); BILIRUBIN,TOTAL 0.8 mg/dl (0.2-1.3); BLOOD UREA NITROGEN 16 mg/dl (7-20); CALCIUM 8.8 mg/dl (8.4-10.2); CARBON DIOXIDE 26 mmol/L (21-31); CHLORIDE 105 mmol/L (97-110); Estimated GFR > 60 mL/min (>60); GLUCOSE 81 mg/dl (70-220); MAGNESIUM 1.7 mg/dl (1.7-2.5); POTASSIUM 3.7 mmol/L (3.5-5.1); SODIUM 143 mmol/L (135-144); TOTAL PROTEIN 7.2 g/dl (6.1-8.1)
[2018-08-23] MEDS: FUROSEMIDE 40 MG TAB PO ×2 (10:44→18:57)
[2018-08-23] MEDS: LISINOPRIL 5 MG TAB PO (10:45)
[2018-08-23] MEDS ORDERED: CEPASTAT LOZENGE MT (12:00)
[2018-08-23] MEDS ORDERED: LIDOCAINE 1% (MPF) 5 ML VIAL (16:40)
[2018-08-24] MEDS: HYDROCODONE/APAP (5/325) TAB PO ×3 (04:11→22:39)
[2018-08-24 05:52] LABS: ADD MAN DIFF? NO
[2018-08-24 05:57] LABS: BASOPHILS % 0.4 % (0.0-2.0); EOSINOPHILS # 0.2 10^3/ul (0.0-0.5); EOSINOPHILS % 2.5 % (0.0-7.0); HEMATOCRIT 39.9 % (37.0-47.0); HEMOGLOBIN 13.4 g/dl (12.0-16.0); LYMPHOCYTES % 41.8 % (15.0-51.0); MEAN CORPUSCULAR HEMOGLOBIN 32.4 pg (29.0-33.0); MEAN CORPUSCULAR HGB CONC 33.6 g/dl (32.0-37.0); MEAN CORPUSCULAR VOLUME 96.6 fl (82.0-101.0); MEAN PLATELET VOLUME 10.6 fl (7.4-10.4); MONOCYTE # 0.6 10^3/ul (0.3-0.9); MONOCYTES % 8.6 % (0.0-11.0); NEUTROPHIL # 3.4 10^3/ul (1.6-7.5); NEUTROPHILS % 46.4 % (39.0-77.0); PLATELET COUNT 239 10^3/UL (140-415); RED BLOOD COUNT 4.13 10^6/ul (4.20-5.40); RED CELL DISTRIBUTION WIDTH 14.8 % (11.5-14.5)
[2018-08-24 05:57] LABS: WHITE BLOOD COUNT 7.3 10^3/ul (4.8-10.8)
[2018-08-24] MEDS: FUROSEMIDE 40 MG TAB PO ×2 (05:59→18:58)
[2018-08-24 06:22] LABS: ANION GAP 10 (5-13); BLOOD UREA NITROGEN 22 mg/dl (7-20); CALCIUM 8.7 mg/dl (8.4-10.2); CARBON DIOXIDE 26 mmol/L (21-31); CHLORIDE 103 mmol/L (97-110); CREATININE 0.83 mg/dl (0.44-1.00); Estimated GFR > 60 mL/min (>60); GLUCOSE 112 mg/dl (70-220); MAGNESIUM 1.5 mg/dl (1.7-2.5); PHOSPHORUS 4.4 mg/dl (2.5-4.9); SODIUM 139 mmol/L (135-144)
[2018-08-24] MEDS: ALBUTEROL/IPRATROPIUM (NEB) 3 ML AMP HHN ×2 (08:49→22:16)
[2018-08-24] MEDS: LISINOPRIL 5 MG TAB PO (09:26)
[2018-08-24] MEDS: MAGNESIUM SULFATE 2 GM/50 ML 50 ML IVPB (11:10)
[2018-08-25] MEDS: HYDROCODONE/APAP (5/325) TAB PO ×2 (05:40→13:47)
[2018-08-25] MEDS: FUROSEMIDE 40 MG TAB PO (05:41)
[2018-08-25] MEDS: LISINOPRIL 5 MG TAB PO (08:30)
[2018-08-25 10:50] LABS: ADD MAN DIFF? NO
[2018-08-25 10:57] LABS: BASOPHILS % 0.4 % (0.0-2.0); EOSINOPHILS # 0.2 10^3/ul (0.0-0.5); EOSINOPHILS % 1.9 % (0.0-7.0); HEMATOCRIT 39.6 % (37.0-47.0); LYMPHOCYTES # 2.4 10^3/ul (0.8-2.9); LYMPHOCYTES % 29.9 % (15.0-51.0); MEAN CORPUSCULAR HEMOGLOBIN 31.9 pg (29.0-33.0); MEAN CORPUSCULAR HGB CONC 32.8 g/dl (32.0-37.0); MEAN CORPUSCULAR VOLUME 97.3 fl (82.0-101.0); MEAN PLATELET VOLUME 10.1 fl (7.4-10.4); MONOCYTE # 0.6 10^3/ul (0.3-0.9); NEUTROPHIL # 4.8 10^3/ul (1.6-7.5); NEUTROPHILS % 59.4 % (39.0-77.0); PLATELET COUNT 259 10^3/UL (140-415); RED BLOOD COUNT 4.07 10^6/ul (4.20-5.40); RED CELL DISTRIBUTION WIDTH 15.1 % (11.5-14.5)
[2018-08-25] MEDS: FUROSEMIDE 20 MG INJ IV (10:57)
[2018-08-25 11:20] LABS: ANION GAP 10 (5-13); BLOOD UREA NITROGEN 20 mg/dl (7-20); CALCIUM 8.5 mg/dl (8.4-10.2); CARBON DIOXIDE 29 mmol/L (21-31); CHLORIDE 100 mmol/L (97-110); CREATININE 0.83 mg/dl (0.44-1.00); Estimated GFR > 60 mL/min (>60); GLUCOSE 81 mg/dl (70-220); MAGNESIUM 1.5 mg/dl (1.7-2.5); PHOSPHORUS 4.5 mg/dl (2.5-4.9); SODIUM 139 mmol/L (135-144)
[2018-08-25] MEDS: MAGNESIUM SULFATE 2 GM/50 ML 50 ML IVPB (12:23)
[2018-08-25] MEDS: GUAIFENESIN 20 MG/ML 5ML CUP PO ×2 (13:44→21:24)
[2018-08-25] MEDS: FUROSEMIDE 40 MG INJ IV (17:26)
[2018-08-25] MEDS: ALBUTEROL/IPRATROPIUM (NEB) 3 ML AMP HHN (21:01)
[2018-08-26] MEDS: HYDROCODONE/APAP (5/325) TAB PO ×2 (01:53→15:58)
[2018-08-26] MEDS: FUROSEMIDE 40 MG INJ IV ×2 (06:00→17:21)
[2018-08-26] MEDS: LISINOPRIL 5 MG TAB PO (08:26)
[2018-08-26] MEDS: FUROSEMIDE 20 MG INJ IV (09:57)
[2018-08-26] MEDS: GUAIFENESIN 20 MG/ML 5ML CUP PO (15:58)
[2018-08-27] MEDS: HYDROCODONE/APAP (5/325) TAB PO (00:38)
[2018-08-27] MEDS: ALBUTEROL/IPRATROPIUM (NEB) 3 ML AMP HHN (00:50)
[2018-08-27] MEDS: FUROSEMIDE 40 MG INJ IV (06:39)
[2018-08-27] MEDS: LISINOPRIL 5 MG TAB PO (08:37)
== END 2018-08-27 11:54 | disposition home or self-care (01) | DRG 292 ==
LOC: 6WM 19:33 → E/R 18:00
PROC: 0W993ZX Drainage of Right Pleural Cavity, Percutaneous Approach, Diagnostic (ICD-10-PCS; principal; 2018-08-23)
DX: I11.0 Hypertensive heart disease with heart failure (principal); J90 Pleural effusion, not elsewhere classified; I27.20 Pulmonary hypertension, unspecified; Z99.81 Dependence on supplemental oxygen; E83.42 Hypomagnesemia; I42.9 Cardiomyopathy, unspecified; I50.813 Acute on chronic right heart failure; E87.6 Hypokalemia; F17.200 Nicotine dependence, unspecified, uncomplicated; F15.10 Other stimulant abuse, uncomplicated
CPT/HCPCS: 36415; 71045; 76705; 76942; 80048; 80053; 80307; 81025; 83735; 83880; 84100; 84484; 85025; 85610; 85730; 93005; 94640; 94664; 97161; 99285-25

== ENCOUNTER 2018-09-14 18:04 | Inpatient (IN) | payer OTHER ==
[2018-09-14 18:26] LABS: ADD MAN DIFF? NO
[2018-09-14 18:29] LABS: BASOPHIL # 0.1 10^3/ul (0.0-0.1); BASOPHILS % 0.5 % (0.0-2.0); EOSINOPHILS # 0.2 10^3/ul (0.0-0.5); EOSINOPHILS % 1.7 % (0.0-7.0); HEMATOCRIT 41.6 % (37.0-47.0); HEMOGLOBIN 13.7 g/dl (12.0-16.0); LYMPHOCYTES # 2.6 10^3/ul (0.8-2.9); LYMPHOCYTES % 27.2 % (15.0-51.0); MEAN CORPUSCULAR HEMOGLOBIN 32.5 pg (29.0-33.0); MEAN CORPUSCULAR HGB CONC 32.9 g/dl (32.0-37.0); MEAN CORPUSCULAR VOLUME 98.8 fl (82.0-101.0); MEAN PLATELET VOLUME 10.1 fl (7.4-10.4); MONOCYTE # 0.8 10^3/ul (0.3-0.9); MONOCYTES % 8.3 % (0.0-11.0); NEUTROPHIL # 5.9 10^3/ul (1.6-7.5); NEUTROPHILS % 61.9 % (39.0-77.0); PLATELET COUNT 336 10^3/UL (140-415); RED BLOOD COUNT 4.21 10^6/ul (4.20-5.40); RED CELL DISTRIBUTION WIDTH 15.9 % (11.5-14.5)
[2018-09-14 18:29] LABS: WHITE BLOOD COUNT 9.5 10^3/ul (4.8-10.8)
[2018-09-14 18:40] LABS: Blood Gas IEPAP 15/5; Blood Gas PS 10; MODE MASK - BIPAP; MetHgb Venous 0.2 %; Sample Type Blood venous; Site VENOUS LINE; Venous COHb 0.6 %; Venous Fraction OxyHgb 92.7 %; Venous Oxygen Sat 93.4 mmHG (55.0-75.0); Venous Total Hemglobin 14.6 g/dl
[2018-09-14 18:48] LABS: INR 1.15; PROTIME 14.8 Sec (11.9-14.9); PT RATIO 1.2
[2018-09-14 18:49] LABS: PARTIAL THROMBOPLASTIN TIME 28.4 Sec (23.0-35.0)
[2018-09-14 18:51] LABS: ANION GAP 10 (5-13); BLOOD UREA NITROGEN 20 mg/dl (7-20); CARBON DIOXIDE 22 mmol/L (21-31); CHLORIDE 107 mmol/L (97-110); CREATININE 0.73 mg/dl (0.44-1.00); Estimated GFR > 60 mL/min (>60); GLUCOSE 136 mg/dl (70-220); POTASSIUM 3.7 mmol/L (3.5-5.1); SODIUM 139 mmol/L (135-144)
[2018-09-14 19:03] LABS: TROPONIN-I < 0.012 ng/ml (0.000-0.120)
[2018-09-14] MEDS: FUROSEMIDE 40 MG INJ IV (19:20)
[2018-09-14] MEDS ORDERED: ONDANSETRON 4 MG INJ IV (20:00)
[2018-09-14] MEDS ORDERED: ACETAMINOPHEN 325 MG TAB PO (20:00)
[2018-09-14] MEDS: ACETAMINOPHEN 325 MG TAB PO (22:24)
[2018-09-15] MEDS: CEFTRIAXONE 500 MG in SOD CHLORIDE 0.9% 50 ML IVPB ×2 (01:05→22:20)
[2018-09-15] MEDS: PANTOPRAZOLE (EC) 40 MG TAB PO (05:09)
[2018-09-15] MEDS: FUROSEMIDE 40 MG TAB PO (05:10)
[2018-09-15 05:11] LABS: ADD MAN DIFF? NO
[2018-09-15 05:17] LABS: WHITE BLOOD COUNT 9.4 10^3/ul (4.8-10.8)
[2018-09-15 05:17] LABS: BASOPHIL # 0.1 10^3/ul (0.0-0.1); BASOPHILS % 0.5 % (0.0-2.0); EOSINOPHILS # 0.2 10^3/ul (0.0-0.5); EOSINOPHILS % 2.1 % (0.0-7.0); HEMATOCRIT 40.2 % (37.0-47.0); HEMOGLOBIN 13.3 g/dl (12.0-16.0); LYMPHOCYTES # 2.9 10^3/ul (0.8-2.9); MEAN CORPUSCULAR HEMOGLOBIN 32.5 pg (29.0-33.0); MEAN CORPUSCULAR HGB CONC 33.1 g/dl (32.0-37.0); MEAN CORPUSCULAR VOLUME 98.3 fl (82.0-101.0); MONOCYTE # 0.9 10^3/ul (0.3-0.9); NEUTROPHIL # 5.3 10^3/ul (1.6-7.5); NEUTROPHILS % 56.1 % (39.0-77.0); PLATELET COUNT 319 10^3/UL (140-415); RED BLOOD COUNT 4.09 10^6/ul (4.20-5.40); RED CELL DISTRIBUTION WIDTH 15.9 % (11.5-14.5)
[2018-09-15 05:42] LABS: ALANINE AMINOTRANSFERASE 34 IU/L (13-69); ALBUMIN 3.3 g/dl (3.3-4.9); ALBUMIN/GLOBULIN RATIO 0.94; ALKALINE PHOSPHATASE 148 IU/L (42-121); ANION GAP 9 (5-13); ASPARTATE AMINO TRANSFERASE 46 IU/L (15-46); BILIRUBIN,INDIRECT 0.7 mg/dl (0-1.1); BILIRUBIN,TOTAL 0.7 mg/dl (0.2-1.3); BLOOD UREA NITROGEN 19 mg/dl (7-20); CALCIUM 8.9 mg/dl (8.4-10.2); CARBON DIOXIDE 28 mmol/L (21-31); CHLORIDE 104 mmol/L (97-110); CREATININE 0.91 mg/dl (0.44-1.00); Estimated GFR > 60 mL/min (>60); GLUCOSE 105 mg/dl (70-220); POTASSIUM 3.4 mmol/L (3.5-5.1); SODIUM 141 mmol/L (135-144); TOTAL PROTEIN 6.8 g/dl (6.1-8.1)
[2018-09-15] MEDS: LISINOPRIL 5 MG TAB PO (09:00)
[2018-09-15] MEDS: ENOXAPARIN 40 MG/0.4 ML SYG SC (09:00)
[2018-09-15] MEDS: LIDOCAINE 1% (MPF) 5 ML VIAL (09:56)
[2018-09-15] MEDS: POTASSIUM CHLORIDE (SR) 20 MEQ TAB PO (12:03)
[2018-09-15 12:15] LABS: FLD MN% 89.3 %; FLD PMN% 10.7 %; FLD RBC 7000 /uL; FLD WBC 355 /cmm
[2018-09-15 12:39] LABS: FLUID GLUCOSE 103 mg/dl; FLUID LD 301 U/L; FLUID TOTAL PROTEIN 4.3 g/dl; FLUID TYPE THORACENTESIS FLUID
[2018-09-15] MEDS: ACETAMINOPHEN 325 MG TAB PO (13:47)
[2018-09-15 14:34] LABS: FLD CLARITY CLOUDY; FLD COLOR YELLOW
[2018-09-15 14:34] LABS: FLD TYPE THORACENTHESIS
[2018-09-15 14:41] LABS: PATH REVIEW? YES
[2018-09-15] MEDS: ALBUTEROL/IPRATROPIUM (NEB) 3 ML AMP HHN (16:29)
[2018-09-15] MEDS: BUMETANIDE 1 MG INJ IV (17:07)
[2018-09-15 17:19] LABS: TROPONIN-I < 0.012 ng/ml (0.000-0.120)
[2018-09-15 18:35] LABS: ADD UMIC NO; UR ASCORBIC ACID NEGATIVE (NEGATIVE); UR BILIRUBIN (Dip) NEGATIVE (NEGATIVE); UR BLOOD (Dip) NEGATIVE (NEGATIVE); UR CLARITY CLEAR (CLEAR); UR COLOR AMBER (YELLOW); UR GLUCOSE (Dip) NEGATIVE (NEGATIVE); UR KETONES (Dip) NEGATIVE (NEGATIVE); UR LEUKOCYTE ESTERASE (Dip) NEGATIVE Leu/ul (NEGATIVE); UR NITRITE (Dip) NEGATIVE (NEGATIVE); UR SPECIFIC GRAVITY (Dip) 1.019 (1.003-1.030); UR TOTAL PROTEIN (Dip) NEGATIVE (NEGATIVE); UR UROBILINOGEN (Dip) 2+ mg/dL (NEGATIVE)
[2018-09-16] MEDS: ACETAMINOPHEN 325 MG TAB PO ×2 (02:54→20:18)
[2018-09-16] MEDS: BUMETANIDE 1 MG INJ IV ×3 (05:38→17:08)
[2018-09-16] MEDS: PANTOPRAZOLE (EC) 40 MG TAB PO (05:38)
[2018-09-16 06:36] LABS: TROPONIN-I < 0.012 ng/ml (0.000-0.120)
[2018-09-16 06:53] LABS: ANION GAP 11 (5-13); BLOOD UREA NITROGEN 15 mg/dl (7-20); CARBON DIOXIDE 28 mmol/L (21-31); CHLORIDE 102 mmol/L (97-110); CREATININE 0.77 mg/dl (0.44-1.00); Estimated GFR > 60 mL/min (>60); GLUCOSE 88 mg/dl (70-220); POTASSIUM 4.3 mmol/L (3.5-5.1); SODIUM 141 mmol/L (135-144)
[2018-09-16 07:02] LABS: CHOL/HDL RATIO 5.3 RATIO; HDL CHOLESTEROL 23 mg/dl (34-82); LDL CHOLESTEROL,CALCULATED 81 mg/dl; TRIGLYCERIDES 88 mg/dl (0-149)
[2018-09-16 07:02] LABS: CHOLESTEROL 122 mg/dl (100-200)
[2018-09-16] MEDS: LISINOPRIL 5 MG TAB PO (08:08)
[2018-09-16] MEDS: POTASSIUM CHLORIDE (SR) 20 MEQ TAB PO (08:08)
[2018-09-16] MEDS: ENOXAPARIN 40 MG/0.4 ML SYG SC (08:18)
[2018-09-16] MEDS: ALBUMIN HUMAN 25% 100 ML IV ×2 (17:08→23:55)
[2018-09-16] MEDS: MIDODRINE 2.5 MG TAB PO (17:08)
[2018-09-16] MEDS: CEFTRIAXONE 500 MG in SOD CHLORIDE 0.9% 50 ML IVPB (22:59)
[2018-09-17 05:13] LABS: ADD MAN DIFF? NO
[2018-09-17 05:28] LABS: BASOPHILS % 0.5 % (0.0-2.0); EOSINOPHILS # 0.2 10^3/ul (0.0-0.5); EOSINOPHILS % 2.4 % (0.0-7.0); HEMATOCRIT 38.6 % (37.0-47.0); HEMOGLOBIN 12.7 g/dl (12.0-16.0); LYMPHOCYTES # 2.3 10^3/ul (0.8-2.9); LYMPHOCYTES % 30.4 % (15.0-51.0); MEAN CORPUSCULAR HEMOGLOBIN 32.6 pg (29.0-33.0); MEAN CORPUSCULAR HGB CONC 32.9 g/dl (32.0-37.0); MEAN PLATELET VOLUME 10.3 fl (7.4-10.4); MONOCYTE # 0.8 10^3/ul (0.3-0.9); MONOCYTES % 10.3 % (0.0-11.0); NEUTROPHIL # 4.2 10^3/ul (1.6-7.5); NEUTROPHILS % 56.1 % (39.0-77.0); PLATELET COUNT 312 10^3/UL (140-415); RED CELL DISTRIBUTION WIDTH 15.9 % (11.5-14.5)
[2018-09-17 05:28] LABS: WHITE BLOOD COUNT 7.5 10^3/ul (4.8-10.8)
[2018-09-17 05:59] LABS: ANION GAP 9 (5-13); BLOOD UREA NITROGEN 20 mg/dl (7-20); CALCIUM 9.2 mg/dl (8.4-10.2); CARBON DIOXIDE 32 mmol/L (21-31); CHLORIDE 99 mmol/L (97-110); CREATININE 0.85 mg/dl (0.44-1.00); Estimated GFR > 60 mL/min (>60); GLUCOSE 82 mg/dl (70-220); POTASSIUM 3.6 mmol/L (3.5-5.1); SODIUM 140 mmol/L (135-144)
[2018-09-17] MEDS: BUMETANIDE 1 MG INJ IV ×2 (06:06→16:53)
[2018-09-17] MEDS: PANTOPRAZOLE (EC) 40 MG TAB PO (06:06)
[2018-09-17] MEDS: LISINOPRIL 5 MG TAB PO (07:35)
[2018-09-17] MEDS: MIDODRINE 2.5 MG TAB PO (08:10)
[2018-09-17] MEDS: ALBUMIN HUMAN 25% 100 ML IV (08:10)
[2018-09-17] MEDS: POTASSIUM CHLORIDE (SR) 20 MEQ TAB PO (08:10)
[2018-09-17] MEDS: ENOXAPARIN 40 MG/0.4 ML SYG SC (08:30)
[2018-09-17] MEDS: ACETAMINOPHEN 325 MG TAB PO ×3 (10:44→20:50)
[2018-09-17] MEDS: ALBUTEROL/IPRATROPIUM (NEB) 3 ML AMP HHN (15:51)
[2018-09-17] MEDS: CEFTRIAXONE 500 MG in SOD CHLORIDE 0.9% 50 ML IVPB (22:49)
[2018-09-18] MEDS: PANTOPRAZOLE (EC) 40 MG TAB PO (05:52)
[2018-09-18] MEDS: BUMETANIDE 1 MG INJ IV (05:52)
[2018-09-18 06:05] LABS: ADD MAN DIFF? NO
[2018-09-18 06:10] LABS: WHITE BLOOD COUNT 7.9 10^3/ul (4.8-10.8)
[2018-09-18 06:10] LABS: BASOPHILS % 0.3 % (0.0-2.0); EOSINOPHILS # 0.1 10^3/ul (0.0-0.5); EOSINOPHILS % 1.7 % (0.0-7.0); HEMATOCRIT 38.8 % (37.0-47.0); HEMOGLOBIN 12.5 g/dl (12.0-16.0); LYMPHOCYTES # 2.3 10^3/ul (0.8-2.9); LYMPHOCYTES % 28.8 % (15.0-51.0); MEAN CORPUSCULAR HEMOGLOBIN 32.1 pg (29.0-33.0); MEAN CORPUSCULAR HGB CONC 32.2 g/dl (32.0-37.0); MEAN CORPUSCULAR VOLUME 99.5 fl (82.0-101.0); MEAN PLATELET VOLUME 10.1 fl (7.4-10.4); MONOCYTE # 0.8 10^3/ul (0.3-0.9); MONOCYTES % 9.9 % (0.0-11.0); NEUTROPHIL # 4.6 10^3/ul (1.6-7.5); PLATELET COUNT 296 10^3/UL (140-415); RED CELL DISTRIBUTION WIDTH 15.9 % (11.5-14.5)
[2018-09-18 06:43] LABS: ANION GAP 9 (5-13); BLOOD UREA NITROGEN 22 mg/dl (7-20); CALCIUM 9.5 mg/dl (8.4-10.2); CARBON DIOXIDE 35 mmol/L (21-31); CHLORIDE 96 mmol/L (97-110); CREATININE 0.83 mg/dl (0.44-1.00); Estimated GFR > 60 mL/min (>60); GLUCOSE 72 mg/dl (70-220); POTASSIUM 3.6 mmol/L (3.5-5.1); SODIUM 140 mmol/L (135-144)
[2018-09-18] MEDS: POTASSIUM CHLORIDE (SR) 20 MEQ TAB PO (08:07)
[2018-09-18] MEDS: LISINOPRIL 5 MG TAB PO (08:07)
[2018-09-18] MEDS: ENOXAPARIN 40 MG/0.4 ML SYG SC (09:46)
[2018-09-18] MEDS: ACETAMINOPHEN 325 MG TAB PO ×2 (13:45→21:57)
[2018-09-18] MEDS: BUMETANIDE 1 MG TAB PO (17:26)
[2018-09-18] MEDS: GABAPENTIN 100 MG CAP PO (20:05)
[2018-09-18] MEDS: CEFTRIAXONE 500 MG in SOD CHLORIDE 0.9% 50 ML IVPB (21:57)
[2018-09-19] MEDS: BUMETANIDE 1 MG TAB PO ×2 (05:41→18:42)
[2018-09-19] MEDS: PANTOPRAZOLE (EC) 40 MG TAB PO (05:41)
[2018-09-19] MEDS: POTASSIUM CHLORIDE (SR) 20 MEQ TAB PO (09:43)
[2018-09-19] MEDS: GABAPENTIN 100 MG CAP PO ×3 (09:43→21:22)
[2018-09-19] MEDS: LISINOPRIL 5 MG TAB PO (09:44)
[2018-09-19] MEDS: ENOXAPARIN 40 MG/0.4 ML SYG SC (10:07)
[2018-09-19 12:06] LABS: ANION GAP 10 (5-13); BLOOD UREA NITROGEN 22 mg/dl (7-20); CALCIUM 9.6 mg/dl (8.4-10.2); CARBON DIOXIDE 38 mmol/L (21-31); CHLORIDE 93 mmol/L (97-110); Estimated GFR > 60 mL/min (>60); GLUCOSE 71 mg/dl (70-220); POTASSIUM 3.3 mmol/L (3.5-5.1); SODIUM 141 mmol/L (135-144)
[2018-09-19] MEDS: ACETAMINOPHEN 325 MG TAB PO (18:42)
[2018-09-20 05:52] LABS: ADD MAN DIFF? NO
[2018-09-20 06:03] LABS: BASOPHILS % 0.5 % (0.0-2.0); EOSINOPHILS # 0.2 10^3/ul (0.0-0.5); EOSINOPHILS % 2.2 % (0.0-7.0); HEMATOCRIT 37.5 % (37.0-47.0); HEMOGLOBIN 12.5 g/dl (12.0-16.0); LYMPHOCYTES # 2.3 10^3/ul (0.8-2.9); LYMPHOCYTES % 26.7 % (15.0-51.0); MEAN CORPUSCULAR HEMOGLOBIN 32.1 pg (29.0-33.0); MEAN CORPUSCULAR HGB CONC 33.3 g/dl (32.0-37.0); MEAN CORPUSCULAR VOLUME 96.4 fl (82.0-101.0); MEAN PLATELET VOLUME 10.1 fl (7.4-10.4); MONOCYTE # 0.8 10^3/ul (0.3-0.9); MONOCYTES % 9.3 % (0.0-11.0); NEUTROPHIL # 5.2 10^3/ul (1.6-7.5); NEUTROPHILS % 60.9 % (39.0-77.0); PLATELET COUNT 252 10^3/UL (140-415); RED BLOOD COUNT 3.89 10^6/ul (4.20-5.40); RED CELL DISTRIBUTION WIDTH 15.8 % (11.5-14.5)
[2018-09-20 06:03] LABS: WHITE BLOOD COUNT 8.5 10^3/ul (4.8-10.8)
[2018-09-20 06:24] LABS: ANION GAP 9 (5-13); BLOOD UREA NITROGEN 29 mg/dl (7-20); CALCIUM 9.7 mg/dl (8.4-10.2); CARBON DIOXIDE 32 mmol/L (21-31); CHLORIDE 96 mmol/L (97-110); CREATININE 0.82 mg/dl (0.44-1.00); Estimated GFR > 60 mL/min (>60); GLUCOSE 90 mg/dl (70-220); POTASSIUM 3.8 mmol/L (3.5-5.1); SODIUM 137 mmol/L (135-144)
[2018-09-20] MEDS: BUMETANIDE 1 MG TAB PO ×2 (06:59→17:20)
[2018-09-20] MEDS: PANTOPRAZOLE (EC) 40 MG TAB PO (06:59)
[2018-09-20 08:18] LABS: MAGNESIUM 1.6 mg/dl (1.7-2.5)
[2018-09-20] MEDS: LISINOPRIL 5 MG TAB PO (09:00)
[2018-09-20] MEDS: GABAPENTIN 100 MG CAP PO ×3 (09:37→22:09)
[2018-09-20] MEDS: POTASSIUM CHLORIDE (SR) 20 MEQ TAB PO (09:37)
[2018-09-20] MEDS: ENOXAPARIN 40 MG/0.4 ML SYG SC (09:48)
[2018-09-20] MEDS: MAGNESIUM SULFATE 2 GM/50 ML 50 ML IVPB (14:35)
[2018-09-21 06:08] LABS: ANION GAP 11 (5-13); BLOOD UREA NITROGEN 27 mg/dl (7-20); CALCIUM 9.3 mg/dl (8.4-10.2); CARBON DIOXIDE 31 mmol/L (21-31); CHLORIDE 96 mmol/L (97-110); CREATININE 0.77 mg/dl (0.44-1.00); Estimated GFR > 60 mL/min (>60); GLUCOSE 129 mg/dl (70-220); POTASSIUM 3.3 mmol/L (3.5-5.1); SODIUM 138 mmol/L (135-144)
[2018-09-21] MEDS: PANTOPRAZOLE (EC) 40 MG TAB PO (07:03)
[2018-09-21] MEDS: BUMETANIDE 1 MG TAB PO ×2 (07:03→18:52)
[2018-09-21] MEDS: ENOXAPARIN 40 MG/0.4 ML SYG SC (09:00)
[2018-09-21] MEDS: GABAPENTIN 100 MG CAP PO ×3 (09:55→20:18)
[2018-09-21] MEDS: LISINOPRIL 5 MG TAB PO (09:56)
[2018-09-21] MEDS: POTASSIUM CHLORIDE (SR) 20 MEQ TAB PO ×2 (09:56→13:27)
[2018-09-21 10:36] LABS: NIL 0.01 IU/mL; QUANTIFERON(R)-TB GOLD NEGATIVE (NEGATIVE); TB-NIL 0.01 IU/mL; TB2-NIL 0.01 IU/mL
[2018-09-21] MEDS: ACETAMINOPHEN 325 MG TAB PO (18:57)
[2018-09-22] MEDS: MIDODRINE 2.5 MG TAB PO (03:41)
[2018-09-22] MEDS: ONDANSETRON 4 MG INJ IV (03:41)
[2018-09-22 05:27] LABS: ADD MAN DIFF? NO
[2018-09-22 05:29] LABS: WHITE BLOOD COUNT 6.7 10^3/ul (4.8-10.8)
[2018-09-22 05:29] LABS: BASOPHILS % 0.6 % (0.0-2.0); EOSINOPHILS # 0.2 10^3/ul (0.0-0.5); EOSINOPHILS % 3.3 % (0.0-7.0); HEMATOCRIT 36.2 % (37.0-47.0); HEMOGLOBIN 12.2 g/dl (12.0-16.0); LYMPHOCYTES % 30.5 % (15.0-51.0); MEAN CORPUSCULAR HEMOGLOBIN 33.1 pg (29.0-33.0); MEAN CORPUSCULAR HGB CONC 33.7 g/dl (32.0-37.0); MEAN CORPUSCULAR VOLUME 98.1 fl (82.0-101.0); MEAN PLATELET VOLUME 10.4 fl (7.4-10.4); MONOCYTE # 0.7 10^3/ul (0.3-0.9); MONOCYTES % 9.8 % (0.0-11.0); NEUTROPHIL # 3.7 10^3/ul (1.6-7.5); NEUTROPHILS % 55.5 % (39.0-77.0); PLATELET COUNT 223 10^3/UL (140-415); RED BLOOD COUNT 3.69 10^6/ul (4.20-5.40); RED CELL DISTRIBUTION WIDTH 15.9 % (11.5-14.5)
[2018-09-22] MEDS: BUMETANIDE 1 MG TAB PO ×2 (06:00→17:25)
[2018-09-22 06:11] LABS: PHOSPHORUS 4.4 mg/dl (2.5-4.9)
[2018-09-22 06:11] LABS: MAGNESIUM 1.8 mg/dl (1.7-2.5)
[2018-09-22 06:19] LABS: ANION GAP 9 (5-13); BLOOD UREA NITROGEN 28 mg/dl (7-20); CALCIUM 9.4 mg/dl (8.4-10.2); CARBON DIOXIDE 34 mmol/L (21-31); CHLORIDE 96 mmol/L (97-110); CREATININE 0.79 mg/dl (0.44-1.00); Estimated GFR > 60 mL/min (>60); GLUCOSE 89 mg/dl (70-220); SODIUM 139 mmol/L (135-144)
[2018-09-22] MEDS: PANTOPRAZOLE (EC) 40 MG TAB PO (06:28)
[2018-09-22 06:36] LABS: POTASSIUM 3.7 mmol/L (3.5-5.1)
[2018-09-22] MEDS: GABAPENTIN 100 MG CAP PO ×3 (09:12→21:31)
[2018-09-22] MEDS: POTASSIUM CHLORIDE (SR) 20 MEQ TAB PO (09:12)
[2018-09-22] MEDS: LISINOPRIL 5 MG TAB PO (09:12)
[2018-09-22] MEDS: ENOXAPARIN 40 MG/0.4 ML SYG SC (09:19)
[2018-09-22] MEDS: ACETAMINOPHEN 325 MG TAB PO (17:30)
[2018-09-23] MEDS: ACETAMINOPHEN 325 MG TAB PO ×2 (01:05→08:49)
[2018-09-23 05:49] LABS: ADD MAN DIFF? NO
[2018-09-23 05:52] LABS: BASOPHILS % 0.5 % (0.0-2.0); EOSINOPHILS # 0.2 10^3/ul (0.0-0.5); HEMATOCRIT 37.5 % (37.0-47.0); HEMOGLOBIN 12.3 g/dl (12.0-16.0); LYMPHOCYTES # 1.8 10^3/ul (0.8-2.9); LYMPHOCYTES % 21.2 % (15.0-51.0); MEAN CORPUSCULAR HEMOGLOBIN 32.4 pg (29.0-33.0); MEAN CORPUSCULAR HGB CONC 32.8 g/dl (32.0-37.0); MEAN CORPUSCULAR VOLUME 98.7 fl (82.0-101.0); MEAN PLATELET VOLUME 10.4 fl (7.4-10.4); MONOCYTE # 0.9 10^3/ul (0.3-0.9); MONOCYTES % 10.5 % (0.0-11.0); NEUTROPHIL # 5.7 10^3/ul (1.6-7.5); NEUTROPHILS % 65.5 % (39.0-77.0); PLATELET COUNT 220 10^3/UL (140-415); RED CELL DISTRIBUTION WIDTH 15.9 % (11.5-14.5)
[2018-09-23 05:52] LABS: WHITE BLOOD COUNT 8.7 10^3/ul (4.8-10.8)
[2018-09-23] MEDS: PANTOPRAZOLE (EC) 40 MG TAB PO (05:58)
[2018-09-23] MEDS: BUMETANIDE 1 MG TAB PO ×2 (05:58→17:12)
[2018-09-23 06:11] LABS: ANION GAP 9 (5-13); BLOOD UREA NITROGEN 32 mg/dl (7-20); CALCIUM 9.4 mg/dl (8.4-10.2); CARBON DIOXIDE 33 mmol/L (21-31); CHLORIDE 95 mmol/L (97-110); CREATININE 0.93 mg/dl (0.44-1.00); Estimated GFR > 60 mL/min (>60); GLUCOSE 92 mg/dl (70-220); POTASSIUM 3.9 mmol/L (3.5-5.1); SODIUM 137 mmol/L (135-144)
[2018-09-23 06:27] LABS: MAGNESIUM 1.8 mg/dl (1.7-2.5)
[2018-09-23 06:27] LABS: PHOSPHORUS 4.7 mg/dl (2.5-4.9)
[2018-09-23] MEDS: POTASSIUM CHLORIDE (SR) 20 MEQ TAB PO (08:49)
[2018-09-23] MEDS: GABAPENTIN 100 MG CAP PO ×2 (08:49→13:22)
[2018-09-23] MEDS: LISINOPRIL 5 MG TAB PO (08:50)
[2018-09-23] MEDS: ENOXAPARIN 40 MG/0.4 ML SYG SC (09:53)
[2018-09-23] MEDS: DEXTROSE 5%-0.45% NACL 1,000 ML IV (10:04)
[2018-09-23] MEDS ORDERED: MIDAZOLAM 1 MG/ML 2 ML INJ (16:50)
[2018-09-23] MEDS ORDERED: METOCLOPRAMIDE 10 MG INJ (17:04)
[2018-09-23] MEDS ORDERED: ONDANSETRON 4 MG INJ (17:04)
[2018-09-23] MEDS ORDERED: ETOMIDATE 20 MG INJ (17:04)
[2018-09-23] MEDS ORDERED: ROCURONIUM 50 MG INJ (17:04)
[2018-09-23] MEDS ORDERED: CEFAZOLIN 1 GM INJ (17:04)
[2018-09-23] MEDS ORDERED: MINERAL OIL LIGHT 10 ML VIAL (17:05)
[2018-09-23] MEDS ORDERED: FENTAnyl 50 MCG/ML VIAL (17:22)
[2018-09-23] MEDS ORDERED: PHENYLephrine (100 MCG/ML) 10ML SYG (17:26)
[2018-09-23] MEDS ORDERED: EPHEDrine 25 MG/5 ML SYG (17:26)
[2018-09-23] MEDS: LIDOCAINE 1% (MPF) 30 ML INJ (18:02)
[2018-09-23] MEDS ORDERED: ALBUMIN HUMAN 5% 250 ML (18:14)
[2018-09-23] MEDS ORDERED: ALBUTEROL 0.083% (NEB) 2.5 MG/3 ML AMP HHN (18:30)
[2018-09-23] MEDS ORDERED: FENTAnyl 50 MCG/ML VIAL IV ×2 (18:30)
[2018-09-23] MEDS ORDERED: ONDANSETRON 4 MG INJ IV (18:30)
[2018-09-23] MEDS: ALBUMIN HUMAN 5% 250 ML IV ×2 (18:35→19:29)
[2018-09-23] MEDS: EPHEDrine 25 MG/5 ML SYG IV ×2 (18:38→18:58)
[2018-09-23] MEDS: SOD CHLORIDE 0.9% 1,000 ML IV (18:57)
[2018-09-23] MEDS: SOD CHLORIDE 0.9% 500 ML IV (20:30)
[2018-09-23] MEDS ORDERED: HYDROmorphONE 1 MG/ML SYG (20:41)
[2018-09-23] MEDS: HYDROmorphONE 1 MG/ML SYG IV (20:44)
[2018-09-23] MEDS: DIPHENHYDRAMINE 50 MG INJ IV (20:53)
[2018-09-23] MEDS: GABAPENTIN 300 MG CAP PO (21:00)
[2018-09-23 21:40] LABS: AADO2 Arterial 296.6 mmHg (7.0-24.0); Allen Test ACCEPTAB; Arterial Base Excess -1.5 mmol/L (-3.0-3); Arterial COHb 0.9 % (0.0-3.0); Arterial Fraction of Oxyhgb 89.9 % (93.0-99.0); Arterial HCO3 26.1 mmol/L (22.0-26.0); Arterial MetHb 0.3 % (0.0-1.5); Arterial pCO2 56.1 mmhg (35-45); MODE MASK - SIMPLE; Site Right Radial
[2018-09-24] MEDS: ACETAMINOPHEN 325 MG TAB PO (01:54)
[2018-09-24] MEDS: morphine 4 MG/ML VIAL IV (04:01)
[2018-09-24] MEDS: PANTOPRAZOLE (EC) 40 MG TAB PO (05:32)
[2018-09-24] MEDS: BUMETANIDE 1 MG TAB PO ×2 (05:39→18:05)
[2018-09-24 06:08] LABS: ADD MAN DIFF? NO
[2018-09-24 06:11] LABS: WHITE BLOOD COUNT 11.4 10^3/ul (4.8-10.8)
[2018-09-24 06:11] LABS: BASOPHILS % 0.2 % (0.0-2.0); EOSINOPHILS # 0.1 10^3/ul (0.0-0.5); EOSINOPHILS % 0.7 % (0.0-7.0); HEMATOCRIT 38.5 % (37.0-47.0); HEMOGLOBIN 12.5 g/dl (12.0-16.0); LYMPHOCYTES # 1.4 10^3/ul (0.8-2.9); LYMPHOCYTES % 12.1 % (15.0-51.0); MEAN CORPUSCULAR HEMOGLOBIN 32.8 pg (29.0-33.0); MEAN CORPUSCULAR HGB CONC 32.5 g/dl (32.0-37.0); MEAN PLATELET VOLUME 10.7 fl (7.4-10.4); MONOCYTE # 0.7 10^3/ul (0.3-0.9); MONOCYTES % 6.2 % (0.0-11.0); NEUTROPHIL # 9.1 10^3/ul (1.6-7.5); NEUTROPHILS % 80.4 % (39.0-77.0); PLATELET COUNT 230 10^3/UL (140-415); RED BLOOD COUNT 3.81 10^6/ul (4.20-5.40)
[2018-09-24 07:26] LABS: ANION GAP 11 (5-13); BLOOD UREA NITROGEN 30 mg/dl (7-20); CALCIUM 8.7 mg/dl (8.4-10.2); CARBON DIOXIDE 26 mmol/L (21-31); CHLORIDE 98 mmol/L (97-110); CREATININE 0.94 mg/dl (0.44-1.00); Estimated GFR > 60 mL/min (>60); GLUCOSE 151 mg/dl (70-220); POTASSIUM 4.5 mmol/L (3.5-5.1); SODIUM 135 mmol/L (135-144)
[2018-09-24] MEDS ORDERED: KETOROLAC 30 MG INJ INJ (08:30)
[2018-09-24] MEDS: GABAPENTIN 300 MG CAP PO ×3 (08:41→20:56)
[2018-09-24] MEDS: POTASSIUM CHLORIDE (SR) 20 MEQ TAB PO (08:41)
[2018-09-24] MEDS: LISINOPRIL 5 MG TAB PO (08:56)
[2018-09-24] MEDS: KETOROLAC 15 MG INJ IV (08:56)
[2018-09-24] MEDS: ENOXAPARIN 40 MG/0.4 ML SYG SC (08:58)
[2018-09-24] MEDS: DEXTROSE 5%-0.45% NACL 1,000 ML IV (10:00)
[2018-09-24] MEDS: ALBUTEROL/IPRATROPIUM (NEB) 3 ML AMP HHN (11:13)
[2018-09-24] MEDS: KETOROLAC 30 MG INJ IV ×2 (12:39→19:39)
[2018-09-24 14:48] LABS: AADO2 Arterial 73.9 mmHg (7.0-24.0); Allen Test ACCEPTAB; Arterial Base Excess -0.8 mmol/L (-3.0-3); Arterial Blood Gas Oxygen Sat 98.1 mmHG (95.0-98.0); Arterial COHb 0.9 % (0.0-3.0); Arterial Fraction of Oxyhgb 96.8 % (93.0-99.0); Arterial HCO3 24.3 mmol/L (22.0-26.0); Arterial MetHb 0.4 % (0.0-1.5); Arterial pCO2 42.1 mmhg (35-45); MODE NASAL CANNULA; Site Right Radial
[2018-09-25] MEDS: KETOROLAC 30 MG INJ IV ×4 (01:42→21:31)
[2018-09-25] MEDS: ACETAMINOPHEN 325 MG TAB PO (06:11)
[2018-09-25] MEDS: PANTOPRAZOLE (EC) 40 MG TAB PO (06:11)
[2018-09-25] MEDS: BUMETANIDE 1 MG TAB PO ×2 (06:11→18:09)
[2018-09-25 06:19] LABS: ADD MAN DIFF? NO
[2018-09-25 06:27] LABS: BASOPHILS % 0.2 % (0.0-2.0); EOSINOPHILS # 0.4 10^3/ul (0.0-0.5); EOSINOPHILS % 3.7 % (0.0-7.0); HEMATOCRIT 34.2 % (37.0-47.0); HEMOGLOBIN 11.6 g/dl (12.0-16.0); LYMPHOCYTES # 1.3 10^3/ul (0.8-2.9); MEAN CORPUSCULAR HEMOGLOBIN 32.8 pg (29.0-33.0); MEAN CORPUSCULAR HGB CONC 33.9 g/dl (32.0-37.0); MEAN CORPUSCULAR VOLUME 96.6 fl (82.0-101.0); MEAN PLATELET VOLUME 11.4 fl (7.4-10.4); MONOCYTE # 0.8 10^3/ul (0.3-0.9); NEUTROPHIL # 7.9 10^3/ul (1.6-7.5); NEUTROPHILS % 75.6 % (39.0-77.0); PLATELET COUNT 185 10^3/UL (140-415); RED BLOOD COUNT 3.54 10^6/ul (4.20-5.40); RED CELL DISTRIBUTION WIDTH 15.4 % (11.5-14.5)
[2018-09-25 06:27] LABS: WHITE BLOOD COUNT 10.5 10^3/ul (4.8-10.8)
[2018-09-25 07:18] LABS: ANION GAP 10 (5-13); BLOOD UREA NITROGEN 46 mg/dl (7-20); CALCIUM 8.9 mg/dl (8.4-10.2); CARBON DIOXIDE 26 mmol/L (21-31); CHLORIDE 97 mmol/L (97-110); CREATININE 1.17 mg/dl (0.44-1.00); Estimated GFR > 60 mL/min (>60); GLUCOSE 84 mg/dl (70-220); POTASSIUM 4.3 mmol/L (3.5-5.1); SODIUM 133 mmol/L (135-144)
[2018-09-25] MEDS: GABAPENTIN 300 MG CAP PO ×3 (09:04→20:21)
[2018-09-25] MEDS: POTASSIUM CHLORIDE (SR) 20 MEQ TAB PO (09:04)
[2018-09-25] MEDS: ENOXAPARIN 40 MG/0.4 ML SYG SC (09:09)
[2018-09-26] MEDS: KETOROLAC 30 MG INJ IV (03:46)
[2018-09-26 05:53] LABS: ADD MAN DIFF? NO
[2018-09-26 06:01] LABS: BASOPHILS % 0.2 % (0.0-2.0); EOSINOPHILS # 0.4 10^3/ul (0.0-0.5); EOSINOPHILS % 4.3 % (0.0-7.0); HEMATOCRIT 32.9 % (37.0-47.0); LYMPHOCYTES # 1.2 10^3/ul (0.8-2.9); LYMPHOCYTES % 12.5 % (15.0-51.0); MEAN CORPUSCULAR HEMOGLOBIN 32.9 pg (29.0-33.0); MEAN CORPUSCULAR HGB CONC 33.4 g/dl (32.0-37.0); MEAN CORPUSCULAR VOLUME 98.5 fl (82.0-101.0); MEAN PLATELET VOLUME 11.1 fl (7.4-10.4); MONOCYTE # 0.7 10^3/ul (0.3-0.9); MONOCYTES % 7.9 % (0.0-11.0); NEUTROPHIL # 6.9 10^3/ul (1.6-7.5); NEUTROPHILS % 74.6 % (39.0-77.0); PLATELET COUNT 173 10^3/UL (140-415); RED BLOOD COUNT 3.34 10^6/ul (4.20-5.40); RED CELL DISTRIBUTION WIDTH 15.7 % (11.5-14.5)
[2018-09-26 06:01] LABS: WHITE BLOOD COUNT 9.3 10^3/ul (4.8-10.8)
[2018-09-26] MEDS: PANTOPRAZOLE (EC) 40 MG TAB PO (06:08)
[2018-09-26] MEDS: BUMETANIDE 1 MG TAB PO (06:08)
[2018-09-26 06:45] LABS: ALANINE AMINOTRANSFERASE 34 IU/L (13-69); ALBUMIN 3.2 g/dl (3.3-4.9); ALBUMIN/GLOBULIN RATIO 1.06; ALKALINE PHOSPHATASE 139 IU/L (42-121); ANION GAP 10 (5-13); ASPARTATE AMINO TRANSFERASE 37 IU/L (15-46); BILIRUBIN,INDIRECT 0.9 mg/dl (0-1.1); BILIRUBIN,TOTAL 1.2 mg/dl (0.2-1.3); BLOOD UREA NITROGEN 63 mg/dl (7-20); CALCIUM 8.7 mg/dl (8.4-10.2); CARBON DIOXIDE 28 mmol/L (21-31); CHLORIDE 99 mmol/L (97-110); CREATININE 1.46 mg/dl (0.44-1.00); Estimated GFR 49 mL/min (>60); GLUCOSE 91 mg/dl (70-220); POTASSIUM 4.4 mmol/L (3.5-5.1); SODIUM 137 mmol/L (135-144); TOTAL PROTEIN 6.2 g/dl (6.1-8.1)
[2018-09-26] MEDS: POTASSIUM CHLORIDE (SR) 20 MEQ TAB PO (08:38)
[2018-09-26] MEDS: GABAPENTIN 300 MG CAP PO (08:38)
[2018-09-26] MEDS: ENOXAPARIN 40 MG/0.4 ML SYG SC (08:46)
[2018-09-26] MEDS: ACETAMINOPHEN 325 MG TAB PO (10:02)
[2018-09-26 13:29] LABS: ADD UMIC YES; UR ASCORBIC ACID NEGATIVE (NEGATIVE); UR BACTERIA FEW /HPF (NONE SEEN); UR BILIRUBIN (Dip) NEGATIVE (NEGATIVE); UR BLOOD (Dip) NEGATIVE (NEGATIVE); UR CLARITY SLIGHTLY CLOUDY (CLEAR); UR COLOR YELLOW (YELLOW); UR GLUCOSE (Dip) NEGATIVE (NEGATIVE); UR KETONES (Dip) NEGATIVE (NEGATIVE); UR LEUKOCYTE ESTERASE (Dip) 2+ Leu/ul (NEGATIVE); UR MUCUS FEW /HPF (NONE SEEN); UR NITRITE (Dip) NEGATIVE (NEGATIVE); UR RBC 1 /HPF (0-5); UR SPECIFIC GRAVITY (Dip) 1.009 (1.003-1.030); UR SQUAMOUS EPITHELIAL CELL MODERATE /HPF (FEW); UR TOTAL PROTEIN (Dip) NEGATIVE (NEGATIVE); UR UROBILINOGEN (Dip) 1+ mg/dL (NEGATIVE); UR WBC 29 /HPF (0-5)
[2018-09-26] MEDS: HYDROCODONE/APAP (5/325) TAB PO ×3 (13:55→22:08)
[2018-09-27] MEDS: HYDROCODONE/APAP (5/325) TAB PO ×5 (02:01→21:01)
[2018-09-27 06:04] LABS: ANION GAP 9 (5-13); BLOOD UREA NITROGEN 50 mg/dl (7-20); CALCIUM 9.2 mg/dl (8.4-10.2); CARBON DIOXIDE 27 mmol/L (21-31); CHLORIDE 99 mmol/L (97-110); CREATININE 1.03 mg/dl (0.44-1.00); Estimated GFR > 60 mL/min (>60); GLUCOSE 95 mg/dl (70-220); POTASSIUM 3.9 mmol/L (3.5-5.1); SODIUM 135 mmol/L (135-144)
[2018-09-27] MEDS: PANTOPRAZOLE (EC) 40 MG TAB PO (06:19)
[2018-09-27 06:30] LABS: PHOSPHORUS 4.4 mg/dl (2.5-4.9)
[2018-09-27 06:30] LABS: MAGNESIUM 2.1 mg/dl (1.7-2.5)
[2018-09-27] MEDS: GABAPENTIN 300 MG CAP PO (08:07)
[2018-09-27] MEDS: POTASSIUM CHLORIDE (SR) 20 MEQ TAB PO (08:07)
[2018-09-27] MEDS: ENOXAPARIN 40 MG/0.4 ML SYG SC (08:10)
[2018-09-27] MEDS: CEFTRIAXONE 1 GM/50 ML (PMX) 50 ML IVPB (15:57)
[2018-09-27] MEDS: BUMETANIDE 1 MG TAB PO (17:03)
[2018-09-28] MEDS: HYDROCODONE/APAP (5/325) TAB PO ×5 (01:35→20:57)
[2018-09-28] MEDS: PANTOPRAZOLE (EC) 40 MG TAB PO (05:15)
[2018-09-28] MEDS: BUMETANIDE 1 MG TAB PO ×3 (05:15→23:55)
[2018-09-28 06:08] LABS: ANION GAP 7 (5-13); BLOOD UREA NITROGEN 31 mg/dl (7-20); CALCIUM 9.3 mg/dl (8.4-10.2); CARBON DIOXIDE 32 mmol/L (21-31); CHLORIDE 99 mmol/L (97-110); CREATININE 0.85 mg/dl (0.44-1.00); Estimated GFR > 60 mL/min (>60); GLUCOSE 76 mg/dl (70-220); POTASSIUM 4.3 mmol/L (3.5-5.1); SODIUM 138 mmol/L (135-144)
[2018-09-28] MEDS: GABAPENTIN 300 MG CAP PO (09:37)
[2018-09-28] MEDS: POTASSIUM CHLORIDE (SR) 20 MEQ TAB PO (09:37)
[2018-09-28] MEDS: ENOXAPARIN 40 MG/0.4 ML SYG SC (09:49)
[2018-09-28] MEDS: CEFTRIAXONE 1 GM/50 ML (PMX) 50 ML IVPB (15:47)
[2018-09-29] MEDS: HYDROCODONE/APAP (5/325) TAB PO ×2 (01:57→09:31)
[2018-09-29] MEDS: PANTOPRAZOLE (EC) 40 MG TAB PO (06:27)
[2018-09-29] MEDS: BUMETANIDE 1 MG TAB PO (06:27)
[2018-09-29] MEDS: POTASSIUM CHLORIDE (SR) 20 MEQ TAB PO (09:30)
[2018-09-29] MEDS: GABAPENTIN 300 MG CAP PO (09:31)
[2018-09-29] MEDS: ENOXAPARIN 40 MG/0.4 ML SYG SC (09:45)
[2018-09-29] MEDS: ALBUTEROL/IPRATROPIUM (NEB) 3 ML AMP HHN (10:44)
[2018-09-29] MEDS: HYDROCODONE/APAP (10/325) TAB PO ×3 (13:21→22:38)
[2018-09-29] MEDS: BUMETANIDE 1 MG INJ IV (17:32)
[2018-09-29] MEDS: CEFTRIAXONE 1 GM/50 ML (PMX) 50 ML IVPB (17:32)
[2018-09-30] MEDS: BUMETANIDE 1 MG INJ IV (05:30)
[2018-09-30] MEDS: PANTOPRAZOLE (EC) 40 MG TAB PO (05:34)
[2018-09-30 05:44] LABS: ADD MAN DIFF? NO
[2018-09-30 05:46] LABS: BASOPHILS % 0.4 % (0.0-2.0); EOSINOPHILS # 0.6 10^3/ul (0.0-0.5); EOSINOPHILS % 9.1 % (0.0-7.0); HEMATOCRIT 33.4 % (37.0-47.0); LYMPHOCYTES # 1.8 10^3/ul (0.8-2.9); LYMPHOCYTES % 26.8 % (15.0-51.0); MEAN CORPUSCULAR HEMOGLOBIN 32.4 pg (29.0-33.0); MEAN CORPUSCULAR HGB CONC 32.9 g/dl (32.0-37.0); MEAN CORPUSCULAR VOLUME 98.5 fl (82.0-101.0); MEAN PLATELET VOLUME 10.6 fl (7.4-10.4); NEUTROPHIL # 3.2 10^3/ul (1.6-7.5); NEUTROPHILS % 48.4 % (39.0-77.0); PLATELET COUNT 234 10^3/UL (140-415); RED BLOOD COUNT 3.39 10^6/ul (4.20-5.40); RED CELL DISTRIBUTION WIDTH 15.6 % (11.5-14.5)
[2018-09-30 05:46] LABS: WHITE BLOOD COUNT 6.7 10^3/ul (4.8-10.8)
[2018-09-30 06:18] LABS: ANION GAP 4 (5-13); BLOOD UREA NITROGEN 21 mg/dl (7-20); CALCIUM 9.1 mg/dl (8.4-10.2); CARBON DIOXIDE 34 mmol/L (21-31); CHLORIDE 99 mmol/L (97-110); CREATININE 0.76 mg/dl (0.44-1.00); Estimated GFR > 60 mL/min (>60); GLUCOSE 95 mg/dl (70-220); MAGNESIUM 1.8 mg/dl (1.7-2.5); PHOSPHORUS 4.7 mg/dl (2.5-4.9); POTASSIUM 3.8 mmol/L (3.5-5.1); SODIUM 137 mmol/L (135-144)
[2018-09-30] MEDS ORDERED: LIDOCAINE 1%/EPI 30 ML INJ (07:54)
[2018-09-30] MEDS ORDERED: HEPARIN 1000 UNITS/ML 10 ML INJ (07:54)
[2018-09-30] MEDS ORDERED: PROPOFOL 20 ML (08:07)
[2018-09-30] MEDS ORDERED: CEFAZOLIN 1 GM INJ (08:07)
[2018-09-30] MEDS ORDERED: MIDAZOLAM 1 MG/ML 2 ML INJ ×2 (08:11→08:12)
[2018-09-30] MEDS ORDERED: FENTAnyl 50 MCG/ML VIAL (08:11)
[2018-09-30] MEDS ORDERED: EPHEDrine 25 MG/5 ML SYG IV (09:00)
[2018-09-30] MEDS ORDERED: LABETALOL HCL 20MG INJ IV (09:00)
[2018-09-30] MEDS ORDERED: hydrALAzine 20 MG INJ IV (09:00)
[2018-09-30] MEDS ORDERED: FENTAnyl 50 MCG/ML VIAL IV ×3 (09:00)
[2018-09-30] MEDS ORDERED: METOCLOPRAMIDE 10 MG INJ IV (09:00)
[2018-09-30] MEDS ORDERED: MIDAZOLAM 1 MG/ML 2 ML INJ IV (09:00)
[2018-09-30] MEDS ORDERED: OXYCODONE/ACETAMINOPHEN (5/325) TAB PO (09:00)
[2018-09-30] MEDS: ONDANSETRON 4 MG INJ IV (09:13)
[2018-09-30] MEDS: MEPERIDINE 25 MG INJ IV (09:13)
[2018-09-30] MEDS: OXYCODONE/ACETAMINOPHEN (5/325) TAB PO (09:13)
[2018-09-30] MEDS: ENOXAPARIN 40 MG/0.4 ML SYG SC (10:56)
[2018-09-30] MEDS: HYDROCODONE/APAP (10/325) TAB PO ×3 (11:16→20:34)
[2018-09-30] MEDS: DIPHENHYDRAMINE 50 MG INJ IV ×2 (11:16→20:34)
[2018-09-30] MEDS: POTASSIUM CHLORIDE (SR) 20 MEQ TAB PO (14:26)
[2018-09-30] MEDS: GABAPENTIN 300 MG CAP PO (14:26)
[2018-09-30] MEDS: CEFTRIAXONE 1 GM/50 ML (PMX) 50 ML IVPB (16:45)
[2018-09-30] MEDS: BUMETANIDE 1 MG TAB PO (18:20)
[2018-10-01] MEDS: HYDROCODONE/APAP (10/325) TAB PO ×3 (00:25→08:48)
[2018-10-01 05:09] LABS: ADD UMIC YES; UR ASCORBIC ACID 20 mg/dL (NEGATIVE); UR BILIRUBIN (Dip) NEGATIVE (NEGATIVE); UR BLOOD (Dip) NEGATIVE (NEGATIVE); UR CLARITY SLIGHTLY CLOUDY (CLEAR); UR COLOR YELLOW (YELLOW); UR GLUCOSE (Dip) NEGATIVE (NEGATIVE); UR KETONES (Dip) NEGATIVE (NEGATIVE); UR LEUKOCYTE ESTERASE (Dip) TRACE Leu/ul (NEGATIVE); UR NITRITE (Dip) NEGATIVE (NEGATIVE); UR RBC 1 /HPF (0-5); UR SPECIFIC GRAVITY (Dip) 1.015 (1.003-1.030); UR SQUAMOUS EPITHELIAL CELL FEW /HPF (FEW); UR TOTAL PROTEIN (Dip) NEGATIVE (NEGATIVE); UR UROBILINOGEN (Dip) NEGATIVE (NEGATIVE); UR WBC 10 /HPF (0-5)
[2018-10-01] MEDS: PANTOPRAZOLE (EC) 40 MG TAB PO (05:27)
[2018-10-01] MEDS: BUMETANIDE 1 MG TAB PO (05:27)
[2018-10-01 06:21] LABS: ADD MAN DIFF? NO
[2018-10-01 06:23] LABS: WHITE BLOOD COUNT 7.5 10^3/ul (4.8-10.8)
[2018-10-01 06:23] LABS: BASOPHILS % 0.4 % (0.0-2.0); EOSINOPHILS # 0.6 10^3/ul (0.0-0.5); EOSINOPHILS % 7.9 % (0.0-7.0); HEMATOCRIT 33.9 % (37.0-47.0); HEMOGLOBIN 11.2 g/dl (12.0-16.0); LYMPHOCYTES % 26.6 % (15.0-51.0); MEAN CORPUSCULAR HEMOGLOBIN 32.6 pg (29.0-33.0); MEAN CORPUSCULAR VOLUME 98.5 fl (82.0-101.0); MEAN PLATELET VOLUME 10.7 fl (7.4-10.4); MONOCYTE # 0.8 10^3/ul (0.3-0.9); MONOCYTES % 11.1 % (0.0-11.0); NEUTROPHILS % 53.6 % (39.0-77.0); PLATELET COUNT 238 10^3/UL (140-415); RED BLOOD COUNT 3.44 10^6/ul (4.20-5.40); RED CELL DISTRIBUTION WIDTH 15.4 % (11.5-14.5)
[2018-10-01 06:56] LABS: IRON 45 ug/dl (35-150)
[2018-10-01 07:07] LABS: % IRON SATURATION 15 % SAT (22-52); TOTAL IRON BINDING CAPACITY 301 ug/dl (241-421)
[2018-10-01 07:08] LABS: ANION GAP 5 (5-13); BLOOD UREA NITROGEN 22 mg/dl (7-20); CALCIUM 8.9 mg/dl (8.4-10.2); CARBON DIOXIDE 33 mmol/L (21-31); CHLORIDE 96 mmol/L (97-110); CREATININE 0.78 mg/dl (0.44-1.00); Estimated GFR > 60 mL/min (>60); GLUCOSE 88 mg/dl (70-220); POTASSIUM 3.8 mmol/L (3.5-5.1); SODIUM 134 mmol/L (135-144)
[2018-10-01] MEDS: GABAPENTIN 300 MG CAP PO (08:49)
[2018-10-01] MEDS: POTASSIUM CHLORIDE (SR) 20 MEQ TAB PO (08:49)
[2018-10-01] MEDS: ENOXAPARIN 40 MG/0.4 ML SYG SC (09:01)
[2018-10-01] MEDS: DIPHENHYDRAMINE 50 MG INJ IV (09:17)
== END 2018-10-01 13:00 | disposition home health service (06) | DRG 292 ==
LOC: E/R 18:04 → 6WM 19:39
PROC: 0B9N00Z Drainage of Right Pleura with Drainage Device, Open Approach (ICD-10-PCS; principal; 2018-09-23 17:16)
PROC: 0W993ZX Drainage of Right Pleural Cavity, Percutaneous Approach, Diagnostic (ICD-10-PCS; 2018-09-23 17:16)
PROC: 0W9900Z Drainage of Right Pleural Cavity with Drainage Device, Open Approach (ICD-10-PCS; 2018-09-23 17:16)
PROC: 3E0L3GC Introduction of Other Therapeutic Substance into Pleural Cavity, Percutaneous Approach (ICD-10-PCS; 2018-09-23 17:16)
PROC: 0BPQX0Z Removal of Drainage Device from Pleura, External Approach (ICD-10-PCS; 2018-09-23 17:16)
DX: I50.23 Acute on chronic systolic (congestive) heart failure (principal); I27.0 Primary pulmonary hypertension; R65.10 Systemic inflammatory response syndrome (SIRS) of non-infectious origin without acute organ dysfunction; J90 Pleural effusion, not elsewhere classified; N17.9 Acute kidney failure, unspecified; E66.3 Overweight; E78.5 Hyperlipidemia, unspecified; I07.1 Rheumatic tricuspid insufficiency; I50.810 Right heart failure, unspecified; Z68.29 Body mass index [BMI] 29.0-29.9, adult
CPT/HCPCS: 36415; 36600; 71045; 71250; 76705; 76942; 80048; 80053; 80061; 81001; 81003; 82803; 82945; 83540; 83615; 83735; 84100; 84157; 84484; 84703; 85025; 85610; 85730; 86480; 87070; 87086; 87102; 87116; 88104; 88305; 89051; 93005; 93308; 93970; 94640; 94660; 94664; 96374; 99285-25

== ENCOUNTER 2018-10-04 22:14 | Inpatient (IN) | payer OTHER ==
[2018-10-04] MEDS: SOD CHLORIDE 0.9% 1,000 ML IV (22:40)
[2018-10-04] MEDS: SOD CHLORIDE 0.9% 100 ML (23:05)
[2018-10-04] MEDS: IOHEXOL 300MG/ML 150 ML BTL (23:05)
[2018-10-04 23:16] LABS: ADD MAN DIFF? NO
[2018-10-04 23:27] LABS: BASOPHILS % 0.4 % (0.0-2.0); EOSINOPHILS # 0.8 10^3/ul (0.0-0.5); EOSINOPHILS % 7.8 % (0.0-7.0); HEMATOCRIT 35.9 % (37.0-47.0); HEMOGLOBIN 11.8 g/dl (12.0-16.0); LYMPHOCYTES # 1.9 10^3/ul (0.8-2.9); LYMPHOCYTES % 18.3 % (15.0-51.0); MEAN CORPUSCULAR HEMOGLOBIN 32.6 pg (29.0-33.0); MEAN CORPUSCULAR HGB CONC 32.9 g/dl (32.0-37.0); MEAN CORPUSCULAR VOLUME 99.2 fl (82.0-101.0); MEAN PLATELET VOLUME 9.8 fl (7.4-10.4); MONOCYTE # 0.9 10^3/ul (0.3-0.9); MONOCYTES % 9.2 % (0.0-11.0); NEUTROPHIL # 6.5 10^3/ul (1.6-7.5); NEUTROPHILS % 63.9 % (39.0-77.0); PLATELET COUNT 332 10^3/UL (140-415); RED BLOOD COUNT 3.62 10^6/ul (4.20-5.40); RED CELL DISTRIBUTION WIDTH 15.2 % (11.5-14.5)
[2018-10-04 23:27] LABS: WHITE BLOOD COUNT 10.1 10^3/ul (4.8-10.8)
[2018-10-04 23:42] LABS: ALANINE AMINOTRANSFERASE 30 IU/L (13-69); ALBUMIN 3.9 g/dl (3.3-4.9); ALBUMIN/GLOBULIN RATIO 1.02; ALKALINE PHOSPHATASE 204 IU/L (42-121); ANION GAP 11 (5-13); ASPARTATE AMINO TRANSFERASE 40 IU/L (15-46); BLOOD UREA NITROGEN 13 mg/dl (7-20); CALCIUM 9.9 mg/dl (8.4-10.2); CARBON DIOXIDE 30 mmol/L (21-31); CHLORIDE 97 mmol/L (97-110); CREATININE 0.78 mg/dl (0.44-1.00); Estimated GFR > 60 mL/min (>60); GLUCOSE 65 mg/dl (70-220); POTASSIUM 3.9 mmol/L (3.5-5.1); SODIUM 138 mmol/L (135-144); TOTAL PROTEIN 7.7 g/dl (6.1-8.1)
[2018-10-04 23:48] LABS: INR 1.09; PROTIME 14.2 Sec (11.9-14.9); PT RATIO 1.1
[2018-10-04 23:49] LABS: PARTIAL THROMBOPLASTIN TIME 32.7 Sec (23.0-35.0)
[2018-10-04 23:50] LABS: B-TYPE NATRIURETIC PEPTIDE 3300 PG/ML (0-125)
[2018-10-04 23:54] LABS: TROPONIN-I < 0.012 ng/ml (0.000-0.120)
[2018-10-05] MEDS ORDERED: ONDANSETRON 4 MG INJ IV ×2 (03:30→11:30)
[2018-10-05 07:30] LABS: D-DIMER > 10000.00 ng/ml (<460)
[2018-10-05] MEDS: ACETAMINOPHEN 325 MG TAB PO (09:56)
[2018-10-05] MEDS ORDERED: DOCUSATE SODIUM 100 MG CAP PO (11:30)
[2018-10-05] MEDS ORDERED: ACETAMINOPHEN 325 MG TAB PO (11:30)
[2018-10-05] MEDS ORDERED: NACL 0.9% 3 ML SYG IV (11:30)
[2018-10-05 11:58] LABS: CREATINE KINASE 62 IU/L (23-200)
[2018-10-05 12:10] LABS: CK INDEX 1.3; CK-MB 0.81 ng/ml (0.0-2.4); TROPONIN-I < 0.012 ng/ml (0.000-0.120)
[2018-10-05] MEDS: BUMETANIDE 1 MG INJ IV ×3 (13:08→20:21)
[2018-10-05] MEDS: HYDROCODONE/APAP (5/325) TAB PO ×2 (15:33→20:22)
[2018-10-05 19:27] LABS: CREATINE KINASE 42 IU/L (23-200)
[2018-10-05 19:41] LABS: CK INDEX 1.5; CK-MB 0.65 ng/ml (0.0-2.4); TROPONIN-I < 0.012 ng/ml (0.000-0.120)
[2018-10-06] MEDS: HYDROCODONE/APAP (5/325) TAB PO ×3 (03:39→20:57)
[2018-10-06 06:18] LABS: ADD MAN DIFF? NO
[2018-10-06] MEDS: PANTOPRAZOLE (EC) 40 MG TAB PO (06:18)
[2018-10-06 06:29] LABS: WHITE BLOOD COUNT 8.6 10^3/ul (4.8-10.8)
[2018-10-06 06:29] LABS: BASOPHILS % 0.5 % (0.0-2.0); EOSINOPHILS # 0.6 10^3/ul (0.0-0.5); EOSINOPHILS % 6.7 % (0.0-7.0); HEMOGLOBIN 11.9 g/dl (12.0-16.0); LYMPHOCYTES % 23.5 % (15.0-51.0); MEAN CORPUSCULAR HEMOGLOBIN 32.4 pg (29.0-33.0); MEAN CORPUSCULAR HGB CONC 33.1 g/dl (32.0-37.0); MEAN CORPUSCULAR VOLUME 98.1 fl (82.0-101.0); MEAN PLATELET VOLUME 10.2 fl (7.4-10.4); MONOCYTE # 0.7 10^3/ul (0.3-0.9); MONOCYTES % 8.2 % (0.0-11.0); NEUTROPHIL # 5.2 10^3/ul (1.6-7.5); NEUTROPHILS % 60.5 % (39.0-77.0); PLATELET COUNT 356 10^3/UL (140-415); RED BLOOD COUNT 3.67 10^6/ul (4.20-5.40)
[2018-10-06 07:03] LABS: ALANINE AMINOTRANSFERASE 26 IU/L (13-69); ALBUMIN 3.6 g/dl (3.3-4.9); ALKALINE PHOSPHATASE 165 IU/L (42-121); ANION GAP 8 (5-13); ASPARTATE AMINO TRANSFERASE 44 IU/L (15-46); BILIRUBIN,INDIRECT 0.8 mg/dl (0-1.1); BILIRUBIN,TOTAL 0.8 mg/dl (0.2-1.3); BLOOD UREA NITROGEN 18 mg/dl (7-20); CALCIUM 9.2 mg/dl (8.4-10.2); CARBON DIOXIDE 34 mmol/L (21-31); CHLORIDE 93 mmol/L (97-110); CREATININE 0.77 mg/dl (0.44-1.00); Estimated GFR > 60 mL/min (>60); GLUCOSE 87 mg/dl (70-220); MAGNESIUM 1.4 mg/dl (1.7-2.5); PHOSPHORUS 6.2 mg/dl (2.5-4.9); POTASSIUM 3.7 mmol/L (3.5-5.1); SODIUM 135 mmol/L (135-144); TOTAL PROTEIN 7.2 g/dl (6.1-8.1)
[2018-10-06] MEDS: BUMETANIDE 1 MG INJ IV ×3 (08:34→20:55)
[2018-10-06] MEDS: MAGNESIUM SULFATE 2 GM/50 ML 50 ML IVPB (23:27)
[2018-10-07] MEDS: HYDROCODONE/APAP (5/325) TAB PO ×3 (03:24→17:26)
[2018-10-07] MEDS: PANTOPRAZOLE (EC) 40 MG TAB PO (06:48)
[2018-10-07] MEDS: BUMETANIDE 1 MG INJ IV (08:55)
[2018-10-07] MEDS: MAGNESIUM SULFATE 2 GM/50 ML 50 ML IVPB (12:52)
[2018-10-07] MEDS: MAGNESIUM CHLORIDE (SR) 64 MG TAB PO (17:25)
== END 2018-10-07 20:10 | disposition short-term general hospital (02) | DRG 293 ==
LOC: E/R 22:14 → 6WM 10-05 03:27
DX: I11.0 Hypertensive heart disease with heart failure (principal); I50.813 Acute on chronic right heart failure; F15.10 Other stimulant abuse, uncomplicated; Z91.14 Patient's other noncompliance with medication regimen; I07.1 Rheumatic tricuspid insufficiency; I95.9 Hypotension, unspecified; D64.9 Anemia, unspecified; E66.3 Overweight; Z68.29 Body mass index [BMI] 29.0-29.9, adult; I27.29 Other secondary pulmonary hypertension
CPT/HCPCS: 36415; 71045; 71275; 80053; 82550; 82553; 83735; 83880; 84100; 84484; 84703; 85025; 85378; 85610; 85730; 93005; 93970; 99285-25